=== PATIENT | female | born 1940 | race African-American/Black ===

== ENCOUNTER 2016-11-26 22:31 | Emergency (ER) | payer BC, OTHER ==
[~2016-11-26] VITALS: Ht 170.2 cm; Wt 76.2 kg
--- NOTE | ~2016-11-26 | EKG ---
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
[~2016-11-26 22:31] MED LIST: ADULT LOW DOSE81 MG PO; ALDACTONE25 MG PO; AMBIEN 5 MG TABL5 M1 PO; ASPIRIN EC81 M1 PO; BENADRYL ALLERG25 MG PO; CLONIDINE0.1 PO; COUMADIN; COUMADIN 2 MG TA2 M1 PO; CRESTOR20 MG PO; CRESTOR40 MG PO; ENDUR-ACIN250 MG PO; ENDUR-ACIN500 MG PO; EVISTA PO; FERRO-TIME325 MG PO; FOLIC ACID 40400 MC1 PO; HYDROCHLOROTHIA25 M1 PO; HYDROCODON-ACE1 EAC5 PO; HYDROCODONE-AP1 EACH PO; IRON325 M1 PO; IRON325 PO; KLOR-CON 1010 MEQ PO; LEVOTHROID200 MCG PO; LEVOTHYROXIN0.075 MG PO; LEVOTHYROXINE 0.1 MG PO; LISINOPRIL10 MG PO; LISINOPRIL20 MG PO; LOVAZA1000 MG PO; MELOXICAM7.5 MG PO; MIRALAX17 GM PO; NASONEX17 GM NS; NEURONTIN 300300 M1 PO; NORCO 10-325 T1 EACH PO; PLAVIX 75 MG TA75 M1 PO; PLAVIX 75 MG TA75 MG PO; RANITIDINE 150150 M1 PO; SINGULAIR 10 MG10 M1 PO; VITAMIN D3 PO; VITAMIN D32000 UNIT PO; VITAMIN D35000 UNIT PO; XARELTO10 MG PO; ZETIA10 MG PO; ZYRTEC10 M2 PO
[2016-11-26] MEDS ORDERED: ARICEPT 5 MG TAB5 MG PO (22:57)
[2016-11-26] MEDS ORDERED: MICROZIDE12.5 MG PO (22:57)
[2016-11-26] MEDS ORDERED: ATIVAN0.5 MG PO (22:58)
[2016-11-26] MEDS ORDERED: LIPITOR 20 MG T20 M1 PO (23:00)
[2016-11-26 23:01] LABS: URINE BILIRUBIN NEGATIVE (Negative); URINE BLOOD NEGATIVE (Negative); URINE COLOR YELLOW; URINE GLUCOSE-RANDOM* NEGATIVE (Negative); URINE KETONES NEGATIVE (Negative); URINE NITRITE NEGATIVE (Negative); URINE PROTEIN (DIPSTICK) NEGATIVE (Negative)
[2016-11-26] MEDS ORDERED: ACETAMINOPHEN-1 EAC1 PO (23:01)
[2016-11-26 23:05] LABS: ABSOLUTE NEUTROPHILS 3.6 thou/uL (1.4-8.2); BASOPHILS 0.4 % (0.0-2.0); EOSINOPHILS 2.6 % (0.0-3.0); HEMATOCRIT 31.3 % (37.0-47.0); HEMOGLOBIN 11.2 gm/dL (12.0-15.0); LYMPHOCYTES 33.1 % (24.0-44.0); MCH 30.6 pg (26.0-34.0); MONOCYTES 5.9 % (1.0-8.0); PLATELET COUNT 167 thou/uL (150-400); RBC 3.68 mil/uL (4.20-5.00); RDW 13.8 % (10.5-14.5); WBC 6.2 thou/uL (4.0-11.0)
[2016-11-26 23:15] LABS: ANION GAP 12 mmol/L (7-16); BUN 41 mg/dL (7-18); CALCIUM 8.9 mg/dL (8.5-10.1); CHLORIDE 108 mmol/L (98-107); CO2 19 mmol/L (21-32); CREATININE 2.1 mg/dL (0.6-1.3); GLUCOSE 112 mg/dL (70-99); POTASSIUM 4.8 mmol/L (3.5-5.1); SODIUM 139 mmol/L (136-145)
[2016-11-26 23:16] LABS: MANUAL DIFF NO
[2016-11-26 23:19] LABS: CASTS None Seen /LPF (None Seen); SQUAMOUS 0-3 Few /LPF (0-3)
[2016-11-26 23:20] LABS: BACTERIA 1-9 Few /HPF (None Seen); CRYSTALS None Seen /LPF (None Seen); TRANSITIONAL EPITHEL CELL 0-3 Few /LPF (None Seen); URINE RBC None Seen /HPF (0-2); URINE WBC 6-15 Few /HPF (0-5)
[2016-11-26 23:27] LABS: ALBUMIN 3.9 g/dL (3.4-5.0); ALKALINE PHOSPHATASE 77 U/L (46-116); MAGNESIUM 2.1 mg/dL (1.8-2.4); NT-PRO BRAIN NAT PEPTIDE 64 pg/mL (<300); SGOT 17 U/L (15-37); SGPT 20 U/L (30-65); TOTAL BILIRUBIN 0.8 mg/dL (<0.1-1.0); TOTAL PROTEIN 6.8 g/dL (6.4-8.2); TROPONIN-I < 0.04 ng/mL (<0.04-0.07)
[2016-11-27] MEDS ORDERED: KEFLEX500 MG PO (00:21)
== END 2016-11-27 00:47 | disposition home or self-care (01) ==
LOC: ER 22:31
PROVIDERS: Emergency Medicine
DX: I12.9 Hypertensive chronic kidney disease with stage 1 through stage 4 chronic kidney disease, or unspecified chronic kidney disease (principal); L51.1 Stevens-Johnson syndrome; E78.00 Pure hypercholesterolemia, unspecified; E03.9 Hypothyroidism, unspecified; Z85.528 Personal history of other malignant neoplasm of kidney; G30.9 Alzheimer's disease, unspecified; N39.0 Urinary tract infection, site not specified; F02.80 Dementia in other diseases classified elsewhere, unspecified severity, without behavioral disturbance, psychotic disturbance, mood disturbance, and anxiety; Z88.2 Allergy status to sulfonamides; Z87.891 Personal history of nicotine dependence

== ENCOUNTER → 2016-12-21 | Outpatient (CLI) | payer BC, OTHER ==
[~2016-12-21] MED LIST changes: +ACETAMINOPHEN-1 EAC1 PO; +ARICEPT 5 MG TAB5 MG PO; +ATIVAN0.5 MG PO; +KEFLEX500 MG PO; +LIPITOR 20 MG T20 M1 PO; +MICROZIDE12.5 MG PO
== END ==
LOC: MRI 06:48
DX: M79.671 Pain in right foot (principal)

== ENCOUNTER 2017-06-13 06:37 | Emergency (ER) | payer BC, OTHER ==
[~2017-06-13] VITALS: Ht 167.6 cm; Wt 70.8 kg
[2017-06-13 07:48] LABS: POTASSIUM 3.1 mmol/L (3.5-5.1)
[2017-06-13] MEDS ORDERED: PREDNISONE 20 M20 MG PO (09:19)
[2017-06-13] MEDS ORDERED: PEPCID20 MG PO (09:19)
[2017-06-13] MEDS ORDERED: EPIPEN JR0.15 MG/02 SUBQ (09:19)
== END 2017-06-13 09:45 | disposition home or self-care (01) ==
LOC: ER 06:37
PROVIDERS: Emergency Medicine
DX: T78.3XXA Angioneurotic edema, initial encounter (principal); E87.6 Hypokalemia; I12.9 Hypertensive chronic kidney disease with stage 1 through stage 4 chronic kidney disease, or unspecified chronic kidney disease; N18.9 Chronic kidney disease, unspecified; M19.90 Unspecified osteoarthritis, unspecified site; L51.1 Stevens-Johnson syndrome; E78.00 Pure hypercholesterolemia, unspecified; E03.9 Hypothyroidism, unspecified; F10.99 Alcohol use, unspecified with unspecified alcohol-induced disorder; Z96.652 Presence of left artificial knee joint; Z96.642 Presence of left artificial hip joint; Z88.2 Allergy status to sulfonamides; Z87.891 Personal history of nicotine dependence

== ENCOUNTER 2017-09-26 11:27 | Emergency (ER) | payer BC, OTHER ==
[~2017-09-26] VITALS: Ht 170.2 cm; Wt 68.0 kg
[~2017-09-26 11:27] MED LIST changes: +EPIPEN JR0.15 MG/02 SUBQ; +PEPCID20 MG PO; +PREDNISONE 20 M20 MG PO
[2017-09-26 13:13] VITALS: BP 101/62
[2017-09-26] MEDS ORDERED: OXYCODONE HCL 55 MG PO (13:15)
== END 2017-09-26 13:26 | disposition home or self-care (01) ==
LOC: ER 11:27
DX: M25.552 Pain in left hip (principal); I10 Essential (primary) hypertension; M19.90 Unspecified osteoarthritis, unspecified site; E78.00 Pure hypercholesterolemia, unspecified; E03.9 Hypothyroidism, unspecified; Z88.2 Allergy status to sulfonamides; Z87.891 Personal history of nicotine dependence; W18.39XA Other fall on same level, initial encounter; Y93.89 Activity, other specified; Y92.89 Other specified places as the place of occurrence of the external cause; Y99.8 Other external cause status

== ENCOUNTER 2017-10-03 12:42 | Emergency (ER) | payer BC, OTHER ==
[~2017-10-03] VITALS: Ht 170.2 cm; Wt 77.1 kg
--- NOTE | ~2017-10-03 | EKG ---
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
[~2017-10-03 12:42] MED LIST changes: +OXYCODONE HCL 55 MG PO
[2017-10-03 13:26] LABS: ABSOLUTE NEUTROPHILS 4.6 thou/uL (1.4-8.2); BASOPHILS 0.4 % (0.0-2.0); EOSINOPHILS 3.9 % (0.0-3.0); HEMATOCRIT 32.5 % (37.0-47.0); HEMOGLOBIN 11.4 gm/dL (12.0-15.0); LYMPHOCYTES 19.4 % (24.0-44.0); MCH 32.5 pg (26.0-34.0); MCHC 35.2 g/dL (28.0-37.0); MCV 92.4 fL (80.0-100.0); MONOCYTES 5.1 % (1.0-8.0); PLATELET COUNT 134 thou/uL (150-400); POLYS 71.2 % (36.0-66.0); RBC 3.51 mil/uL (4.20-5.00); RDW 13.8 % (10.5-14.5); WBC 6.5 thou/uL (4.0-11.0)
[2017-10-03 13:36] LABS: ANION GAP 11 mmol/L (7-16); BUN 35 mg/dL (7-18); CALCIUM 9.4 mg/dL (8.5-10.1); CHLORIDE 107 mmol/L (98-107); CO2 24 mmol/L (21-32); CREATININE 2.1 mg/dL (0.6-1.0); GLUCOSE 100 mg/dL (74-106); POTASSIUM 4.2 mmol/L (3.5-5.1); SODIUM 142 mmol/L (136-145)
[2017-10-03 13:45] LABS: TROPONIN-I < 0.04 ng/mL (<0.06)
[2017-10-03 14:33] VITALS: BP 101/41
== END 2017-10-03 14:49 | disposition home or self-care (01) ==
LOC: ER 12:42
PROVIDERS: Emergency Medicine
DX: I95.1 Orthostatic hypotension (principal); R07.9 Chest pain, unspecified; I10 Essential (primary) hypertension; M19.90 Unspecified osteoarthritis, unspecified site; E78.00 Pure hypercholesterolemia, unspecified; E03.9 Hypothyroidism, unspecified; Z88.2 Allergy status to sulfonamides; Z87.891 Personal history of nicotine dependence

== ENCOUNTER 2017-10-10 17:17 | Inpatient (IN) | payer BC, OTHER ==
[~2017-10-10] VITALS: Ht 165.1 cm; Wt 80.7 kg
--- NOTE | ~2017-10-10 | 2DMMODE ---
[facility] [place] [address] 2 D/M-MODE ECHOCARDIOGRAM Name: ROSE MARIE MERCER Room #: 355-P ADM IN M.R.#: [id number] Admission: 10/10/17 Attend Phys: Gregorio Moore Discharge: Date of : 38 Date of Service: 10/11/17 [facility] Report #: [id number] THIS REPORT FOR: //name// APPROVED REPORT Study performed: 10/11/2017 08:58:19 EXAM: Comprehensive 2D, Doppler, and color-flow Echocardiogram Patient Location: Bedside Room #: [facility] Status: routine BSA: 1.88 HR: 82 bpm BP: 100/60 mmHg Other Information Study Quality: Adequate Indications Syncope Hypertension/HDD 2D Dimensions RVDd: 33.36 mm LVEF(%): 59.89 (>50%) IVSd: 10.05 (7-11mm) LVOT Diam: 20.50 (18-24mm) LVDd: 55.11 mm PWd: 10.15 (7-11mm) Ascending Ao: 30.05 (22-36mm) LVDs: 37.34 (25-40mm) Aortic Root: 26.80 mm IVC: 22.00 mm Coto's LVEF: 59.89 % Volumes Left Atrial Volume (Systole) Single Plane 4CH: 55.14 mL Single Plane 2CH: 49.13 mL LA ESV Index: 33.00 mL/m2 Aortic Valve AoV Peak Enrique.: 1.33 m/s AO Peak Gr.: 7.08 mmHg LVOT Max P.98 mmHg LVOT Max V: 1.00 m/s SYLVIA Vmax: 2.47 cm2 Mitral Valve E/A Ratio: 1.0 MV Decel. Time: 153.72 ms [facility] [address] [place] [address] [place] [address] 2 D/M-MODE ECHOCARDIOGRAM Name: ROSE MARIE MERCER Room #: 355-P [facility] IN M.R.#: [id number] Admission: 10/10/17 Attend Phys: Gregorio Moore Discharge: Date of : 38 Date of Service: 10/11/17 [facility] Report #: [id number] MV E Max Enrique.: 0.69 m/s MV A Enrique.: 0.70 m/s MV PHT: 44.58 ms IVRT: 133.79 ms Pulmonary Valve PV Peak Enrique.: 0.99 m/s PV Peak Gr.: 3.95 mmHg KS End Vmax: 0.86 m/s Tricuspid Valve TR Peak Enrique.: 3.00 m/s TR Peak Gr.: 36.04 mmHg PA Pressure: 46.00 mmHg Left Ventricle The left ventricle is normal size. There is normal left ventricular wall thickness. The left ventricular systolic function is normal. The left ventricular ejection fraction is within the normal range. LVEF is 55-60%. This study is not technically sufficient to allow evaluation of the LV diastolic function. Right Ventricle The right ventricle is normal size. The right ventricular systolic function is normal. Atria The left atrium size is normal. The right atrium size is normal. Aortic Valve The aortic valve is normal in structure. No aortic regurgitation is present. There is no aortic valvular stenosis. Mitral Valve The mitral valve is normal in structure. Trace mitral regurgitation. No evidence of mitral valve stenosis. Tricuspid Valve The tricuspid valve is normal in structure. There is mild tricuspid regurgitation. The right atrial pressure is estimated at 46 mmHg. There is moderate pulmonary hypertension. Pulmonic Valve The pulmonary valve is normal in structure. Trace to mild [place] [address] 2 D/M-MODE ECHOCARDIOGRAM Name: SYLVIEROSE MARIE Room #: 355-P [facility] IN .R.#: [id number] Admission: 10/10/17 Attend Phys: Gregorio Moore Discharge: Date of : 38 Date of Service: 10/11/17 1024 Report #: [id number] Great Vessels The aortic root is normal in size. IVC is dilated and collapses <50% with inspiration. Pericardium Trace anterior pericardial effusion. <Conclusion> The left ventricle is normal size. LVEF is 55-60%. The aortic valve is normal in structure. The mitral valve is normal in structure. Trace mitral regurgitation. The tricuspid valve is normal in structure. There is mild tricuspid regurgitation. The right atrial pressure is estimated at 46 mmHg. There is moderate pulmonary hypertension. The pulmonary valve is normal in structure. Trace to mild pulmonic regurgitation. Trace anterior pericardial effusion. <ELECTRONICALLY SIGNED> By: Tony Martinez MD 10/11/17 1024 1024 1024 Tony Martinez MD /INF
--- NOTE | ~2017-10-10 | EKG ---
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 : 1940 Requested By: Marie Baig Order Number: [id number] MD: Santhosh Best Measurements Intervals [place] Rate: 65 P: VT: QRS: 2 QRSD: 103 T: 24 QT: 438 QTc: 456 Interpretive Statements Sinus rhythm No significant abnormality Compared to ECG 10/03/2017 13:43:42 Atrial premature complexes are no longer present Electronically Signed On 10-11-2017 8:50:11 SAT ACT INSTRUCTOR by Santhosh Best [email or web address] <ELECTRONICALLY SIGNED> By: Santhosh Best MD, [facility] 10/11/17 0850 31 31 Santhosh Best MD, [facility] /EPI
[2017-10-10 17:20] VITALS: BP 113/65
[2017-10-10] MEDS ORDERED: LIPITOR40 MG PO (17:32)
[2017-10-10] MEDS ORDERED: ARICEPT 5 MG TAB5 MG PO (17:33)
[2017-10-10] MEDS ORDERED: SYNTHROID150 MCG PO (17:34)
[2017-10-10] MEDS ORDERED: GABAPENTIN 100100 MG PO (17:35)
[2017-10-10] MEDS ORDERED: ZANAFLEX2 MG PO (17:36)
[2017-10-10] MEDS ORDERED: REMERON15 MG PO (17:36)
[2017-10-10 17:37] LABS: ABSOLUTE NEUTROPHILS 2.4 thou/uL (1.4-8.2); BASOPHILS 0.5 % (0.0-2.0); EOSINOPHILS 5.8 % (0.0-3.0); HEMATOCRIT 28.4 % (37.0-47.0); HEMOGLOBIN 10.1 gm/dL (12.0-15.0); LYMPHOCYTES 46.6 % (24.0-44.0); MCH 32.6 pg (26.0-34.0); MCHC 35.5 g/dL (28.0-37.0); MCV 91.7 fL (80.0-100.0); MONOCYTES 5.1 % (1.0-8.0); PLATELET COUNT 142 thou/uL (150-400); RDW 13.3 % (10.5-14.5); WBC 5.8 thou/uL (4.0-11.0)
[2017-10-10 17:45] LABS: ANION GAP 12 mmol/L (7-16); BUN 39 mg/dL (7-18); CALCIUM 8.8 mg/dL (8.5-10.1); CHLORIDE 108 mmol/L (98-107); CO2 22 mmol/L (21-32); CREATININE 2.4 mg/dL (0.6-1.0); GLUCOSE 135 mg/dL (74-106); POTASSIUM 3.4 mmol/L (3.5-5.1); SODIUM 142 mmol/L (136-145)
[2017-10-10 17:50] VITALS: BP 113/65
[2017-10-10 17:53] LABS: TROPONIN-I < 0.04 ng/mL (<0.06)
[2017-10-10 18:45] VITALS: BP 105/60
[2017-10-10 19:15] VITALS: BP 105/59
[2017-10-10 23:45] VITALS: BP 111/65
[2017-10-11 04:27] VITALS: BP 92/61
[2017-10-11 04:29] LABS: CALCIUM 8.2 mg/dL (8.5-10.1); POTASSIUM 4.3 mmol/L (3.5-5.1)
[2017-10-11 07:34] VITALS: BP 100/60
[2017-10-11 15:32] VITALS: BP 108/66
[2017-10-11 19:22] LABS: URINE BILIRUBIN NEGATIVE (Negative); URINE BLOOD NEGATIVE (Negative); URINE CLARITY CLEAR; URINE COLOR YELLOW; URINE GLUCOSE-RANDOM* NEGATIVE (Negative); URINE KETONES NEGATIVE (Negative); URINE LEUKOCYTES TRACE (Negative); URINE NITRITE NEGATIVE (Negative); URINE PROTEIN (DIPSTICK) NEGATIVE (Negative); URINE SPECIFIC GRAVITY 1.015 (1.005-1.035); URINE UROBILINOGEN 0.2 E.U./dl (0.2-1.0)
[2017-10-11 19:45] VITALS: BP 127/89
[2017-10-12 04:06] VITALS: BP 120/70
[2017-10-12 05:44] LABS: ALBUMIN 3.2 g/dL (3.4-5.0); CALCIUM 8.5 mg/dL (8.5-10.1); CREATININE 1.6 mg/dL (0.6-1.0); PHOSPHORUS 3.1 mg/dL (2.5-4.9); POTASSIUM 4.7 mmol/L (3.5-5.1)
[2017-10-12 08:32] VITALS: BP 143/82
[2017-10-12] MEDS ORDERED: SYNTHROID150 MCG PO (09:22)
[2017-10-12 10:52] VITALS: BP 143/82
== END 2017-10-12 11:31 | disposition home or self-care (01) | DRG 312 ==
LOC: ER 17:17 → 3W 17:39 → EROBS 17:39 → 3W 18:50
PROVIDERS: Emergency Medicine; Hospitalist; Nurse Practitioner; Nurse Practitioner Gerontology
PROC: B24BZZ4 Ultrasonography of Heart with Aorta, Transesophageal (ICD-10-PCS; principal; 2017-10-11)
DX: R55 Syncope and collapse (principal); N17.9 Acute kidney failure, unspecified; G30.9 Alzheimer's disease, unspecified; F02.80 Dementia in other diseases classified elsewhere, unspecified severity, without behavioral disturbance, psychotic disturbance, mood disturbance, and anxiety; M19.90 Unspecified osteoarthritis, unspecified site; I73.9 Peripheral vascular disease, unspecified; I12.9 Hypertensive chronic kidney disease with stage 1 through stage 4 chronic kidney disease, or unspecified chronic kidney disease; E78.00 Pure hypercholesterolemia, unspecified; D69.6 Thrombocytopenia, unspecified; E86.0 Dehydration; D64.9 Anemia, unspecified; N18.3 Chronic kidney disease, stage 3 (moderate); I95.9 Hypotension, unspecified; E87.6 Hypokalemia; E03.9 Hypothyroidism, unspecified; Z96.652 Presence of left artificial knee joint; Z96.642 Presence of left artificial hip joint; Z98.42 Cataract extraction status, left eye; Z98.41 Cataract extraction status, right eye; Z87.891 Personal history of nicotine dependence; Z79.82 Long term (current) use of aspirin; Z79.899 Other long term (current) drug therapy; Z85.528 Personal history of other malignant neoplasm of kidney; Z88.2 Allergy status to sulfonamides; Z28.21 Immunization not carried out because of patient refusal
CPT/HCPCS: 10879

== ENCOUNTER 2018-09-18 12:32 | Emergency (ER) | payer BC, OTHER ==
[~2018-09-18] VITALS: Ht 170.2 cm; Wt 71.7 kg
[2018-09-18 12:32] VITALS: BP 176/92
[~2018-09-18 12:32] MED LIST changes: +GABAPENTIN 100100 MG PO; +LIPITOR40 MG PO; +REMERON15 MG PO; +SYNTHROID150 MCG PO; +ZANAFLEX2 MG PO
[2018-09-18] MEDS ORDERED: AUGMENTIN 875-1 EACH PO (13:04)
[2018-09-24] MEDS ORDERED: NORCO 7.5-3251 EACH PO (10:45)
[2018-09-24] MEDS ORDERED: NAMZARIC 28 MG1 EACH PO (10:46)
[2018-09-24] MEDS ORDERED: CYMBALTA60 MG PO (10:46)
[2018-09-24] MEDS ORDERED: CARVEDILOL12.5 MG PO (10:46)
[2018-09-24] MEDS ORDERED: CLONIDINE HCL0.1 MG PO (10:46)
[2018-09-24] MEDS ORDERED: SPIRONOLACTONE25 M1 PO (10:47)
[2018-09-24] MEDS ORDERED: AUGMENTIN 875-1 EACH PO (11:58)
[2018-09-24] MEDS ORDERED: SYNTHROID150 MCG PO (11:59)
[2018-09-24] MEDS ORDERED: EPIPEN JR0.15 MG/02 INJECTION (12:00)
== END 2018-09-18 13:24 | disposition home or self-care (01) ==
LOC: ER 12:32
DX: S51.832A Puncture wound without foreign body of left forearm, initial encounter (principal); I10 Essential (primary) hypertension; M19.90 Unspecified osteoarthritis, unspecified site; E78.00 Pure hypercholesterolemia, unspecified; E03.9 Hypothyroidism, unspecified; Z96.652 Presence of left artificial knee joint; Z98.890 Other specified postprocedural states; Z87.891 Personal history of nicotine dependence; Z88.2 Allergy status to sulfonamides; W54.0XXA Bitten by dog, initial encounter; Y92.89 Other specified places as the place of occurrence of the external cause; Y93.89 Activity, other specified; Y99.8 Other external cause status

== ENCOUNTER → 2018-09-24 | Outpatient (CLI) | payer BC, OTHER ==
[~2018-09-24] VITALS: Ht 167.6 cm; Wt 87.1 kg
[~2018-09-24] MED LIST changes: +AUGMENTIN 875-1 EACH PO; +CARVEDILOL12.5 MG PO; +CLONIDINE HCL0.1 MG PO; +CYMBALTA60 MG PO; +EPIPEN JR0.15 MG/02 INJECTION; +NAMZARIC 28 MG1 EACH PO; +NORCO 7.5-3251 EACH PO; +SPIRONOLACTONE25 M1 PO
[2018-09-24 11:07] VITALS: BP 131/63
--- NOTE | 2018-09-24 11:11 | NUR ---
Pain Clinic Assessment: 1. History of Osteoarthritis: Right Lower Extremity Left Lower Extremity History of Rheumatoid Arthritis: Not Applicable 2. Height: 5 ft. 6 in. 167.6 cm. Weight: 192.0 lb. oz. 87.091 kg. Patient's BMI: 31.0 3. Vital Signs: BP: 131/63 Pulse: 62 Resp: 18 Temp: 02 Sat: 96 ECG Mon: 4. Pain Intensity: 8 5. Fall Risk: Dizziness: Needs help standing or walking: Fallen in the last 3 months: Fall risk comments: 6. Patient on Blood Thinner: None 7. History of Hypertension: Y 8. Opioid Therapy greater than 6 weeks: Y Opiate Contract Signed: 9. Risk Assessment Tool Provided: low-1 10. Functional Assessment Tool: 11. Recreational Drug Use: Never Drug Type: Tobacco Use: Former Smoker Tobacco Type: Amount or Packs/day: How Many Years: Alcohol Use: No Frequency: Quant:
== END ==
LOC: PAIN 07:01
DX: M17.0 Bilateral primary osteoarthritis of knee (principal); R20.0 Anesthesia of skin; F03.90 Unspecified dementia, unspecified severity, without behavioral disturbance, psychotic disturbance, mood disturbance, and anxiety; Z79.899 Other long term (current) drug therapy

== ENCOUNTER → 2018-10-10 | Outpatient (CLI) | payer BC, OTHER ==
[~2018-10-10] VITALS: Ht 167.6 cm; Wt 86.3 kg
[~2018-10-10] MED LIST changes: +MEDROLDOSEPACK PO
[2018-10-10 11:01] VITALS: BP 148/62
--- NOTE | 2018-10-10 11:11 | NUR ---
Pain Clinic Assessment: 1. History of Osteoarthritis: Right Lower Extremity Left Lower Extremity History of Rheumatoid Arthritis: Not Applicable 2. Height: 5 ft. 6 in. 167.6 cm. Weight: 190.2 lb. oz. 86.274 kg. Patient's BMI: 30.7 3. Vital Signs: BP: 148/62 Pulse: 62 Resp: 20 Temp: 02 Sat: 97 ECG Mon: 4. Pain Intensity: 8 5. Fall Risk: Dizziness: Y Needs help standing or walking: Y Fallen in the last 3 months: N Fall risk comments: 6. Patient on Blood Thinner: None 7. History of Hypertension: Y 8. Opioid Therapy greater than 6 weeks: Y Opiate Contract Signed: 9. Risk Assessment Tool Provided: low-1 10. Functional Assessment Tool: 11. Recreational Drug Use: Never Drug Type: Tobacco Use: Former Smoker Tobacco Type: Amount or Packs/day: How Many Years: Alcohol Use: No Frequency: Quant:
== END ==
LOC: PAIN 07:13
DX: M54.5 Low back pain (principal); Z79.899 Other long term (current) drug therapy

== ENCOUNTER → 2018-11-19 | Outpatient (CLI) | payer BC, OTHER ==
[~2018-11-19] VITALS: Ht 167.6 cm; Wt 83.0 kg
[2018-11-19 10:34] VITALS: BP 120/70
--- NOTE | 2018-11-19 10:54 | NUR ---
Pain Clinic Assessment: 1. History of Osteoarthritis: Right Lower Extremity Left Lower Extremity History of Rheumatoid Arthritis: Not Applicable 2. Height: 5 ft. 6 in. 167.6 cm. Weight: 183.0 lb. oz. 83.008 kg. Patient's BMI: 29.6 3. Vital Signs: BP: 120/70 Pulse: 70 Resp: 16 Temp: 02 Sat: 96 ECG Mon: 4. Pain Intensity: 5 5. Fall Risk: Dizziness: N Needs help standing or walking: Y Fallen in the last 3 months: N Fall risk comments: 6. Patient on Blood Thinner: None 7. History of Hypertension: Y 8. Opioid Therapy greater than 6 weeks: Y Opiate Contract Signed: 9. Risk Assessment Tool Provided: low-1 10. Functional Assessment Tool: 11. Recreational Drug Use: Never Drug Type: Tobacco Use: Former Smoker Tobacco Type: Amount or Packs/day: How Many Years: Alcohol Use: No Frequency: Quant:
--- NOTE | 2018-11-26 08:28 | HPC ---
[facility] [address] [place] [address] PAIN MANAGEMENT CONSULTATION Name: GIFTYMARIOLAROSE MARIE Room #: REG GUILLERMO Phil#: [id number] Admission: 11/19/18 ������������������ Attend Phys: Alice Gustafson MD Discharge: ������������������ Date of : 38 Report #: [id number] THIS REPORT FOR: //name// CC: Jeovany Gustafson DATE OF SERVICE: 11/19/2018 CHIEF COMPLAINT: History of spinal stenosis and back pain. FOLLOWUP HISTORY: The patient is a 78-year-old female who has been followed in the Pain Clinic. As you recall, she has a history of spinal stenosis. She has undergone back surgeries in the past. Her son states that she has had injections in the low back area in the past. At this juncture, they seem to be less effective. She has been treated with opioid medications and other medications to help control her pain. She has had total knee replacement, left hip replacement, right partial nephrectomy. She continues to have pain and discomfort. She stays in the bed quite a bit. She states that a component of this is the pain she is experiencing. She has some decrease in memory. She asked that her son report how she did with hydrocodone and Medrol Dosepak. Her son feels that the Medrol Dosepak may have provided some benefit but not a significant amount. She continues to be less active and lying and staying in bed. ALLERGIES: MANUEL INHIBITORS, SULFA; MCCALL-LAZARUS SYNDROME IN 2015, SHORTNESS OF BREATH AND PRURITUS. MEDICATIONS: Levothyroxine 200 mcg daily, EpiPen p.r.n., hydrochlorothiazide 1 tablet, lorazepam 0.5 mg t.i.d. p.r.n., Lipitor 40 mg, Neurontin 100 mg t.i.d., Remeron 15 mg at bedtime, Zanaflex 2 mg p.r.n. for muscle spasms, aspirin 3 tablets p.o., Zetia 10 mg, vitamin D3 of 5000 units, Namzaric 28 mg/10 mg capsules. PAIN CLINIC ASSESSMENT/PQRS: 1. History of osteoarthritic changes in the lower extremities. The patient is not being treated for rheumatoid arthritis. 2. Height 5 feet 6 inches, weight 183 pounds, BMI is 29.6. 3. Vital signs: Blood pressure 120/70, pulse 70, respiratory rate 16, room air saturation 96%. 4. Pain intensity: 5/10. 5. Fall risk: The patient has not fallen in the last 3 months. 6. Blood thinner: The patient is not on a blood thinning medication. 7. Hypertension: The patient is being treated for hypertension. 8. Opioids greater than 6 weeks: The patient receives her medications from one source, the Pain Clinic. 9. Risk assessment tool: Low, 1 for opioid use. [address] [address] PAIN MANAGEMENT CONSULTATION Name: ROSE MARIE MERCER Room #: [facility].#: [id number] Admission: 11/19/18 ������������������ Attend Phys: Alice Gustafson MD Discharge: ������������������ Date of : 38 Report #: [id number] 10. Functional assessment tool: . 11. Recreational drug use: The patient denies use of recreational drugs. 12. Tobacco: The patient is a former smoker. 13. Alcohol: The patient denies use of alcoholic beverages. PHYSICAL EXAMINATION: GENERAL: The patient is a well-developed, well-nourished black female. She appears her stated age. She is alert and oriented x 3. Affect is appropriate. The patient does cry during the interview when she is talking to the nurse. Nurse spoke to her whether or not she was getting in and out of bed because of depression, and this brought her to tears. HEENT: Normocephalic, atraumatic. Extraocular eye muscles intact. Sclerae nonicteric. Mucous membranes are moist. The patient's son is present. He corroborates her story. NECK: Without adenopathy or JVD. HEART: Regular rate. LUNGS: Clear to auscultation, without rhonchi or rales. EXTREMITIES: Upper extremity muscle strength is judged to be 5-/5 for the major muscle groups in the upper extremity. MUSCULOSKELETAL: Low back: The patient without significant scoliosis, kyphosis, or lordosis. She does complain of pain in the right flank area at about T12 area. She also has some pain in the area of her buttocks at times, which is radiating down into her right leg with numbness into her foot. She notes the pain is worse with movement, bending and lifting, somewhat improves with lying down. IMPRESSION: 1. Development of Alzheimer's disease. 2. History of renal cell carcinoma. 3. Hypertension. 4. Arthritis. 5. Peripheral vascular disease with femoral stents, right lower extremity. 6. Hypercholesterolemia. 7. Hypothyroidism. RECOMMENDATIONS: We discussed treatment options with the patient and with her son. At this juncture, I think it would be reasonable for her to continue with her medications. She was taking ____ 7.5 mg. We have increased this to 10 mg one p.o. t.i.d. Hopefully, this will increase her ability to engage in activities with less pain. She will also go to physical therapy. I think that this would be helpful. Her son feels that physical therapy would be beneficial. We have provided a script for them to go to physical therapy. We have recommended that they use the phone to video the exercise regimen that her physical therapist would like for her to undergo. That way, they could put it on a computer or the television or even on her phone and she can go through and do her activities. Hopefully, this would provide guidelines for her and [facility] [address] [place] [address] PAIN MANAGEMENT CONSULTATION Name: ROSE MARIE MERCER Edi Room #: REG [facility] JulesNuraToby.#: [id number] Admission: 11/19/18 ������������������ Attend Phys: Alice Gustafson MD Discharge: ������������������ Date of : 38 Report #: [id number] other family members too if they are helping her with her physical therapy. We would like to thank you for letting us participate in her care. We hope she continues to improve. ��������������������������������������������� <ELECTRONICALLY SIGNED> ���������������������������������������� By: Alice Gustafson MD ��������������������������������������������� 11/26/18 0828 [id number] 0305 Alice Gustafson MD /nt
== END ==
LOC: PAIN 07:08
DX: M48.061 Spinal stenosis, lumbar region without neurogenic claudication (principal); M19.90 Unspecified osteoarthritis, unspecified site; I10 Essential (primary) hypertension; E03.9 Hypothyroidism, unspecified; E78.00 Pure hypercholesterolemia, unspecified; I73.9 Peripheral vascular disease, unspecified; Z85.528 Personal history of other malignant neoplasm of kidney

== ENCOUNTER → 2019-01-16 | Outpatient (CLI) | payer BC, OTHER ==
[~2019-01-16] VITALS: Ht 167.6 cm; Wt 84.0 kg
--- NOTE | ~2019-01-16 | HPC ---
[facility] [place] [address] PAIN MANAGEMENT CONSULTATION Name: SYLVIEROSE MARIE A Room #: REG GUILLERMO Villarreal#: [id number] Admission: 01/16/19 ������������������ Attend Phys: Alice Gustafson MD Discharge: ������������������ Date of : 38 Report #: [id number] THIS REPORT FOR: //name// CC: Jeovany Gustafson DATE OF SERVICE: 01/16/2019 CHIEF COMPLAINT: Things are going pretty well. HISTORY: The patient is a 78-year-old female. As you recall, she has chronic pain because of spinal stenosis. She is walking with a cane. She has undergone back surgeries in the past. Pain at this juncture is helped with use of her opioid medications. She rates her pain as a 5/10. Her son and she feels that she has ____ up and doing more. She is not staying in bed as much. She has considered going to physical therapy. They have not been able to make it to physical therapy yet, but would like to in the near future. She has had no complication from her medications. 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 She is beginning to have problems with her memory. She did find that the Medrol Dosepak was helpful. She has returned today for medications. ALLERGIES: MANUEL INHIBITORS, SULFA, HAD MCCALL-LAZARUS SYNDROME IN 2014, SHORTNESS OF BREATH AND PRURITUS. MEDICATIONS: Levothyroxine 200 mcg daily, EpiPen p.r.n., hydrochlorothiazide one tablet, lorazepam 0.5 mg 1 p.o. t.i.d., Lipitor 40 mg, Neurontin 100 mg t.i.d., Remeron 15 mg at bedtime, Zanaflex 2 mg p.r.n. muscle spasms, aspirin p.r.n., Zetia 10 mg, vitamin D3 5000 units, and Namzaric 28/10 capsules. PAIN CLINIC ASSESSMENT AND PQRS: 1. Osteoarthritis. The patient has changes in the lower extremity. The patient is not being treated for rheumatoid arthritis. 2. Height 5 feet 6 inches, weight 182 pounds, BMI is 29.6. 3. Vital signs: Blood pressure 120/70, pulse 70, respiratory rate 16, room air saturation is 96%. 4. Pain intensity 01/09. 5. Fall history. The patient has not fallen in the last 3 months. She is walking with a cane. 6. Blood thinner. The patient is not on a blood thinning medication. 7. Hypertension. The patient has been treated for hypertension. 8. Opioid therapy greater than 6 weeks. 9. Risk assessment tool, low for opioid use. 10. Functional assessment tool . 11. Recreational drug use. The patient denies use of recreational drugs. 12. Tobacco: The patient is a former smoker. 13. Alcohol: The patient denies use of alcoholic beverages. [address] [address] PAIN MANAGEMENT CONSULTATION Name: FAITH MERCEREdi Daley Room #: [facility] [id number] Admission: 01/16/19 ������������������ Attend Phys: Alice Gustafson MD Discharge: ������������������ Date of : 38 Report #: [id number] PHYSICAL EXAMINATION: GENERAL: The patient is a well-developed, well-nourished black female, appears her stated age. She is accompanied by her son. She is alert and oriented x 3. HEENT: Normocephalic, atraumatic. Extraocular eye muscles intact. Sclerae nonicteric. Mucous membranes are moist. The patient is wearing her glasses. Her son corroborates her story as we discussed her situation. NECK: Without adenopathy or JVD. HEART: Regular rate. LUNGS: Clear to auscultation without rhonchi or rales. EXTREMITIES: Upper extremity muscle strength is judged to be 5-/5 for the major muscle groups in the upper extremity. The patient without significant scoliosis, kyphosis, or lordosis. The patient does have some pain and discomfort in the lower portion of her back in the T12 area. Has pain down her buttocks. She has some pain that radiates into her right leg with some numbness in her feet. Notes exacerbation of pain with certain activities, bending as well as lifting. IMPRESSION: 1. Development Alzheimer's disease. 2. History of renal cell carcinoma. 3. Hypertension. 4. Arthritis. 5. Peripheral vascular disease with femoral stents, right lower extremity. 6. Hypercholesterolemia. 7. Hypothyroidism. RECOMMENDATIONS: We discussed treatment options with the patient. At this juncture, she and her son are in agreement with trying to undergo physical therapy. A script for PT has been written. The patient will also continue with her medications as prescribed. Overall, she feels and her son feels that things are going reasonably well, she seems to be up and more active. She contemplates her daughter coming into town in January staying until 03/02/2019. Her daughter is a nurse. A script for physical therapy has been written. They will videotape her physical therapy session therefore would make it easier for her to remember what the exercises are that she should performed. She or her family members will contact us if they have any concerns. We would like to thank you for letting us participate in her care. We hope she continues to improve. ��������������������������������������������� ���������������������������������������� By: ��������������������������������������������� 1434 0258 Alice Gustafson MD /cecy
[2019-01-16 13:09] VITALS: BP 142/70
--- NOTE | 2019-01-16 13:28 | NUR ---
Pain Clinic Assessment: 1. History of Osteoarthritis: Right Lower Extremity Left Lower Extremity History of Rheumatoid Arthritis: Not Applicable 2. Height: 5 ft. 6 in. 167.6 cm. Weight: 185.2 lb. oz. 84.006 kg. Patient's BMI: 29.9 3. Vital Signs: BP: 142/70 Pulse: 66 Resp: 16 Temp: 02 Sat: 97 ECG Mon: 4. Pain Intensity: 5 5. Fall Risk: Dizziness: Y Needs help standing or walking: Y Fallen in the last 3 months: N Fall risk comments: 6. Patient on Blood Thinner: None 7. History of Hypertension: Y 8. Opioid Therapy greater than 6 weeks: Y Opiate Contract Signed: 01/16/19 9. Risk Assessment Tool Provided: low-1 10. Functional Assessment Tool: 11. Recreational Drug Use: Never Drug Type: Tobacco Use: Former Smoker Tobacco Type: Amount or Packs/day: How Many Years: Alcohol Use: No Frequency: Quant:
== END ==
LOC: PAIN 12-24 13:06
DX: G89.29 Other chronic pain (principal); M48.00 Spinal stenosis, site unspecified; I10 Essential (primary) hypertension; Z87.891 Personal history of nicotine dependence; E78.00 Pure hypercholesterolemia, unspecified; E03.9 Hypothyroidism, unspecified; Z88.8 Allergy status to other drugs, medicaments and biological substances; Z88.2 Allergy status to sulfonamides; Z79.899 Other long term (current) drug therapy; Z79.891 Long term (current) use of opiate analgesic

== ENCOUNTER → 2019-02-23 | Outpatient (CLI) | payer BC, OTHER ==
[~2019-02-23] VITALS: Ht 170.2 cm; Wt 82.6 kg
[~2019-02-23] MED LIST changes: +ESCITALOPRAM OX20 MG PO; +LASIX 40 MG TAB40 M2 PO; +POTASSIUM CHLO10 MEQ PO
[2019-02-23 08:09] VITALS: BP 125/67
--- NOTE | 2019-02-23 08:12 | NUR ---
Pain Clinic Assessment: 1. History of Osteoarthritis: Right Lower Extremity Left Lower Extremity History of Rheumatoid Arthritis: Not Applicable 2. Height: 5 ft. 7 in. 170.2 cm. Weight: 182.0 lb. oz. 82.555 kg. Patient's BMI: 28.5 3. Vital Signs: BP: 125/67 Pulse: 68 Resp: 16 Temp: 02 Sat: 95 ECG Mon: 4. Pain Intensity: 3 5. Fall Risk: Dizziness: N Needs help standing or walking: N Fallen in the last 3 months: N Fall risk comments: 6. Patient on Blood Thinner: None 7. History of Hypertension: Y 8. Opioid Therapy greater than 6 weeks: Y Opiate Contract Signed: 01/16/19 9. Risk Assessment Tool Provided: low-1 10. Functional Assessment Tool: 11. Recreational Drug Use: Never Drug Type: Tobacco Use: Former Smoker Tobacco Type: Amount or Packs/day: How Many Years: Alcohol Use: No Frequency: Quant:
--- NOTE | 2019-02-24 13:23 | HPC ---
[facility] [address] [place] [address] PAIN MANAGEMENT CONSULTATION Name: ROSE MARIE MERCER Room #: REG [place] Villarreal#: [id number] Admission: 02/23/19 ������������������ Attend Phys: Vania Saleh Discharge: ������������������ Date of : 39 Report #: [id number] THIS REPORT FOR: //name// CC: Vania Saleh Jeovanyrin Baig DATE OF SERVICE: 02/23/2019 CHIEF COMPLAINT: Back pain and right hip pain. HISTORY OF PRESENT ILLNESS: This is a 78-year-old female who returns to the pain clinic today with her daughter for a refill of her medications for her chronic back pain due to spinal stenosis. She tells me today she also has hip pain in her right hip and she is using a walker. Her pain today is 3/10, mostly an intermittent achy pain, worse with movement and bending, better with medication and lying down. Her daughter is a nurse, here from [place], telling me that she has been here 3 days and has not seen her mom take a pain pill in these last 3 days, so she does take them very sparingly. I did question the patient if she had gone to Physical Therapy that Dr. Gustafson had ordered in December. The patient tells me she has not gone. I talked to her and her daughter about the plan was to go to therapy and record her sessions so she knew what exercises to do at home, so she could remember them since she does have significant memory issues at times. The daughter will call her brother and find out why they did not go but was asking for another prescription for physical therapy today. ALLERGIES: MANUEL INHIBITORS and SULFA. MEDICATIONS: Celexa 20 mg, potassium 10 mEq, Lasix 40, hydrocodone 10/325 p.r.n., Synthroid 150 mcg, spironolactone 25 mg, clonidine 0.1 mg, carvedilol 12.5 mg, Namzaric 28/10 daily, gabapentin 100 mg, atorvastatin 40 mg, Ativan 0.5 mg t.i.d., Zetia 10 mg and aspirin. PQRS: The patient has osteoarthritic changes in her lower extremities. She is not being treated for rheumatoid arthritis. Height is 5 feet 7 inches, weight is 182 and BMI is 28. Vital signs: Blood pressure 125/67, pulse is 68, respirations 16 and oxygen sat is 95%. Pain score is 3/10. Fall risk. Denies dizziness. Does not need help walking or standing and has not fallen in the last 3 months. She does use a cane though. The patient is not on any blood thinners and does have a history of hypertension. Opioid therapy is greater than 6 weeks; therefore, an opiate signed contract is on the chart. Her risk assessment tool is low. Her functional assessment is 29/70. Recreational drug use, she denies. She is not a smoker and does not drink alcohol. We did check the prescription monitoring system. The patient is filling [address] [address] PAIN MANAGEMENT CONSULTATION Name: GIFTYNARINDERROSE MARIE Marie Room #: REG GUILLERMO Villarreal#: [id number] Admission: 02/23/19 ������������������ Attend Phys: Vania Saleh Discharge: ������������������ Date of : 39 Report #: [id number] appropriately for her hydrocodone. She recently started lorazepam due to a new CPAP she is wearing. Family members tell me that she does safeguard her medications. There is a drug screen on the chart. PHYSICAL EXAMINATION: GENERAL: This is a well-developed, well-nourished 78-year-old black female who appears her stated age. She is accompanied by her daughter. She is alert and orientated today. HEENT: Normocephalic and atraumatic. Extraocular eye muscles are intact. Mucous membranes are moist. EXTREMITIES: Upper extremity strength judged to be 5/5 for major muscle groups. The patient is without significant scoliosis, kyphosis or lordosis. Complains of some right hip pain today, does not radiate past her hip, does have pain also at the T12 area of her thoracic spine and in her lumbar area. Multiple trigger points in her back are assessed. IMPRESSION: 1. Alzheimer's disease. 2. History of renal cell carcinoma. 3. Osteoarthritis. 4. Chronic back pain. 5. Myofascial pain. 6. Complex medical management under terms of written opioid agreement. We reviewed the fact that opiate medications are being used to provide analgesia adequate to support activities of daily living, not attempting to achieve a specific pain score on the 0-10 Visual Analog Scale. The current opiate medications are providing sufficient analgesia to allow the patient to participate in activities of daily living. The patient is not exhibiting any aberrant behavior suggestive of drug diversion. The patient is not having any adverse reactions to medications. The patient is not suffering from daytime somnolence or mental acuity changes. The patient is managing opiate-induced constipation with appropriate ydnt-xek-sglerwe agents and dietary considerations. The patient was counseled on concern for caution with operating a motor vehicle while using opiate medications. A physical exam was performed and the patient's functional status was evaluated. All patients with back pain were advised against the bed rest greater than 4 days and were advised to return to normal activities. Pain score assessment was noted and the treatment plan was reviewed with the patient. All current medications, both prescribed and OTC were reviewed and reconciled on the electronic medical record. Tobacco screening was accomplished and smoking cessation was advised when indicated. BMI was noted and diet/exercise modification was recommended for all patients following outside normal parameters. [facility] [address] [address] PAIN MANAGEMENT CONSULTATION Name: ROSE MARIE MERCER Room #: REG [facility].#: [id number] Admission: 02/23/19 ������������������ Attend Phys: Vania Saleh Discharge: ������������������ Date of : 39 Report #: [id number] I reviewed with the patient today their responsibilities to safeguard prescription medications, reviewed their responsibility to utilize medications only as prescribed by the physician. They are to seek and receive pain medications only from 1 physician group ( [facility]). They are to use 1 pharmacy and keep the clinic informed if they change pharmacies. Their responsibilities include making followup visits in a timely fashion and to avoid abrupt discontinuation of medication usage. Their responsibilities further include bringing their medications (bottles from the pharmacy with residual pills) to the visit for possible confirmation of pill counts and the patient understands it is their responsibility to submit to random drug screens to ensure both that the medications prescribed are present, and that no other controlled substances are present. All prescriptions provided today were generated electronically. RECOMMENDATIONS: 1. We discussed treatment options with the patient and her daughter today. At this visit, we will rewrite a script for physical therapy and the daughter will make sure that she has at least started this therapy prior to her return back home. They will videotape her exercises, so the patient can practice these at home herself. 2. Script given for hydrocodone 10/325 up to 3 times a day, #90 given. The patient does use these sparingly, so her morphine milligram equivalent is 30 or less per day. 3. The patient will return as needed for medications. The patient is seen today in collaboration with Dr. Price Gustafson. ��������������������������������������������� <ELECTRONICALLY SIGNED> ���������������������������������������� By: Vania Saleh ��������������������������������������������� 02/24/19 1323 [id number] Vania Saleh /nt
== END ==
LOC: PAIN 06:43
DX: M16.11 Unilateral primary osteoarthritis, right hip (principal); M54.9 Dorsalgia, unspecified; G30.9 Alzheimer's disease, unspecified; M79.18 Myalgia, other site; Z79.899 Other long term (current) drug therapy

== ENCOUNTER → 2019-03-18 | Outpatient (CLI) | payer BC, OTHER ==
[~2019-03-18] VITALS: Ht 170.2 cm; Wt 84.4 kg
[~2019-03-18] MED LIST changes: +SYNTHROID125 MC1 PO
--- NOTE | ~2019-03-18 | HPC ---
[facility] [place] [address] PAIN MANAGEMENT CONSULTATION Name: SYLVIEROSE MARIE A Room #: REG [facility] Phil#: [id number] Admission: 03/18/19 ������������������ Attend Phys: Alice Gustafson MD Discharge: ������������������ Date of : 39 Report #: [id number] THIS REPORT FOR: //name// CC: Jeovany Gustafson DATE OF SERVICE: 03/18/2019 CHIEF COMPLAINT: Here for medication renewal, things are going reasonably well. I think an additional amount of time in PT would be helpful. HISTORY: The patient is a 78-year-old female who has been followed in the pain clinic because of chronic pain. She has a history of spinal stenosis, involves her right hip. She has been using a walker. She has undergone physical therapy. Her son states that the physical therapy has been helpful. She has been more active with less discomfort. He feels that twice a week has been beneficial and would like for an additional few weeks to help her continue to be more active and control pain. She had no complications from her medications. Feels that the current use of hydrocodone 10 mg 1 p.o. t.i.d., seems to be a reasonably good dosing at this point. Usually takes 2 tablets earlier in the day and in the evening should she have more problem is followed by the second dose. The patient agrees that things seem to be working well. We will continue with her medications. ALLERGIES: MANUEL INHIBITORS AND SULFA. CURRENT MEDICATIONS: Celexa 20 mg, potassium 10 mEq, Lasix 40 mg, hydrocodone 10/325 p.r.n., Synthroid 150 mcg, spironolactone 25 mg, clonidine 0.1 mg, carvedilol 12.5 mg, Namzaric 28/10 daily, gabapentin 100 mg, atorvastatin 40 mg, Ativan 0.5 mg t.i.d., Zetia 10 mg, and aspirin 81 mg. PAIN CLINIC ASSESSMENT AND PQRS: 1. The patient has some arthritic changes in the lower extremity. She has not been treated for rheumatoid arthritis. 2. Height 5 feet 7 inches, weight 186 pounds, BMI is 29.1. 3. Vital Signs: Blood pressure 148/75, pulse 63, respiratory rate 15, room air saturation is 96%. 4. Pain intensity 4-5/10. 5. Fall risk. The patient has not fallen in the last 3 months. The patient uses a cane when at home. 6. Blood thinner. The patient is not on a blood thinning medication. 7. Hypertension. The patient is treated for hypertension. 8. Opioids greater than 6 weeks. The patient receives medication from one source, the pain clinic. 9. Risk assessment tool, low. 10. Functional assessment tool . [facility] [address] [place] [address] PAIN MANAGEMENT CONSULTATION Name: ROSE MARIE MERCER Edi [id number] Admission: 03/18/19 ������������������ Attend Phys: Alice Gustafson MD Discharge: ������������������ Date of : 39 Report #: [id number] 11. Recreational drug use. The patient denies. 12. Tobacco: The patient is a former smoker. 13. Alcohol: The patient denies use of alcoholic beverages at this juncture. PHYSICAL EXAMINATION: GENERAL: The patient is a well-developed, well-nourished black female, appears her stated age. She is accompanied by her son. She appears in good mood. Affect is appropriate. Speech is fluent. The patient appears to be cognizant of where she is. She does introduce her son to us as her son on a number of occasions. The patient has pain and discomfort in lower portion of her back with pain in the lower portion of her back and down the right hip. The patient without significant scoliosis, kyphosis, or lordosis. IMPRESSION: 1. Alzheimer's disease. 2. History of renal cell carcinoma. 3. Osteoarthritis. 4. Chronic back pain. 5. Myofascial pain. 6. Complex medical management using opioids to help control the patient's pain. RECOMMENDATIONS: We discussed treatment options with her son. He overall feels that things are going reasonably well. States that she did have a good day with the physical therapist. She has been attended to by one of the physical therapist in the department here at [facility]. The patient's son states she seems to have a good rapport with him. He would like to have her follow up additional 2 times a week for a few weeks. He feels that she is more active. Having less pain. Feels like the pain medication that she is taking is reasonable. He and she are reasonably happy at this juncture with the treatment course. Her daughter who lives in [place] will come to see her in a few weeks. We would like to thank you for letting us participate in her care. We hope she continues to improve. ��������������������������������������������� ���������������������������������������� By: ��������������������������������������������� [id number] Alice Gustafson MD /cecy
[2019-03-18 10:35] VITALS: BP 148/75
--- NOTE | 2019-03-18 10:40 | NUR ---
Pain Clinic Assessment: 1. History of Osteoarthritis: Right Lower Extremity Left Lower Extremity History of Rheumatoid Arthritis: Not Applicable 2. Height: 5 ft. 7 in. 170.2 cm. Weight: 186.0 lb. oz. 84.369 kg. Patient's BMI: 29.1 3. Vital Signs: BP: 148/75 Pulse: 63 Resp: 15 Temp: 02 Sat: 96 ECG Mon: 4. Pain Intensity: 4-5 5. Fall Risk: Dizziness: N Needs help standing or walking: Y Fallen in the last 3 months: N Fall risk comments: USES CANE 6. Patient on Blood Thinner: None 7. History of Hypertension: Y 8. Opioid Therapy greater than 6 weeks: Y Opiate Contract Signed: 01/16/19 9. Risk Assessment Tool Provided: low-1 10. Functional Assessment Tool: 11. Recreational Drug Use: Never Drug Type: Tobacco Use: Former Smoker Tobacco Type: Amount or Packs/day: How Many Years: Alcohol Use: No Frequency: Quant:
== END ==
LOC: PAIN 10:05
DX: M79.18 Myalgia, other site (principal); G89.29 Other chronic pain; M19.90 Unspecified osteoarthritis, unspecified site; G30.9 Alzheimer's disease, unspecified; Z79.891 Long term (current) use of opiate analgesic; Z85.53 Personal history of malignant neoplasm of renal pelvis

== ENCOUNTER 2019-04-18 21:54 | Emergency (ER) | payer BC, OTHER ==
[~2019-04-18] VITALS: Ht 152.4 cm; Wt 81.7 kg
[2019-04-18] MEDS ORDERED: NORCO 5-325 TA1 EAC1 PO (22:01)
[2019-04-18 23:30] VITALS: BP 148/66
== END 2019-04-18 23:30 | disposition home or self-care (01) ==
LOC: ER 21:54
DX: S60.212A Contusion of left wrist, initial encounter (principal); Z87.891 Personal history of nicotine dependence; Z88.2 Allergy status to sulfonamides; Z88.8 Allergy status to other drugs, medicaments and biological substances; Z96.642 Presence of left artificial hip joint; Z98.890 Other specified postprocedural states; Z96.653 Presence of artificial knee joint, bilateral; W01.0XXA Fall on same level from slipping, tripping and stumbling without subsequent striking against object, initial encounter; Y92.89 Other specified places as the place of occurrence of the external cause; Y93.01 Activity, walking, marching and hiking; Y99.8 Other external cause status

== ENCOUNTER → 2019-06-12 | Outpatient (CLI) | payer BC, OTHER ==
[~2019-06-12] VITALS: Ht 170.2 cm; Wt 84.0 kg
[~2019-06-12] MED LIST changes: -CARVEDILOL12.5 MG PO; +CARVEDILOL25 MG PO; +NORCO 5-325 TA1 EAC1 PO
[2019-06-12 09:15] VITALS: BP 126/74
--- NOTE | 2019-06-12 09:22 | NUR ---
Pain Clinic Assessment: 1. History of Osteoarthritis: Right Lower Extremity Left Lower Extremity History of Rheumatoid Arthritis: Not Applicable 2. Height: 5 ft. 7 in. 170.2 cm. Weight: 185.2 lb. oz. 84.006 kg. Patient's BMI: 29.0 3. Vital Signs: BP: 126/74 Pulse: 66 Resp: 16 Temp: 02 Sat: 95 ECG Mon: 4. Pain Intensity: 5-6 5. Fall Risk: Dizziness: N Needs help standing or walking: Y Fallen in the last 3 months: Y Fall risk comments: USES CANE 6. Patient on Blood Thinner: None 7. History of Hypertension: Y 8. Opioid Therapy greater than 6 weeks: Y Opiate Contract Signed: 01/16/19 9. Risk Assessment Tool Provided: low-1 10. Functional Assessment Tool: 11. Recreational Drug Use: Never Drug Type: Tobacco Use: Former Smoker Tobacco Type: Amount or Packs/day: How Many Years: Alcohol Use: No Frequency: Quant:
--- NOTE | 2019-06-24 09:44 | HPC ---
[facility] [place] [address] PAIN MANAGEMENT CONSULTATION Name: ROSE MARIE MERCER Edi [id number] Admission: 06/12/19 Attend Phys: Alice Gustafson MD Discharge: Date of : 39 Report #: [id number] THIS REPORT FOR: //name// CC: Jeovany Gustafson DATE OF SERVICE: 06/12/2019 CHIEF COMPLAINT: Here for medication renewal. HISTORY: The patient is a 78-year-old female who has been followed in the pain clinic because of chronic pain. She has problems with spinal stenosis. She has undergone physical therapy. She feels that things have improved with physical therapy, but still has back pain. She continues to do her exercises under the auspices of her son and family members. Overall, things are going reasonably well. She feels that the pain medications are helpful. Not having any increase in cognitive dysfunction. She and her son both feel that things are going reasonably well and we will continue with her current medications. ALLERGIES: MANUEL INHIBITORS AND SULFA. CURRENT MEDICATIONS: Celexa 20 mg, potassium 10 mEq, Lasix 40 mg, hydrocodone 10/325, Synthroid 150 mcg, spironolactone 25 mg, clonidine 0.1 mg, carvedilol 12.5 mg, Namzaric 28/10, gabapentin 100 mg, Lipitor 40 mg, Ativan 0.5 mg t.i.d., Zetia 10 mg, and aspirin. PAIN CLINIC ASSESSMENT/PQRS: 1. The patient has some arthritic changes in the right as well as the left lower extremity. She is not being treated for rheumatoid arthritis. 2. Height 5 feet 7 inches, weight 185 pounds, BMI is 29.0. 3. Vital signs: Blood pressure 126/74, pulse 66, respiratory rate 16, room air saturation 95%. 4. Pain intensity 5-6/10. 5. Fall risk. The patient has not fallen in the last 3 months. The patient uses a cane. 6. Blood thinner. The patient is not on a blood thinning medication. 7. Hypertension. The patient is being treated for hypertension. 8. Opioids greater than 6 weeks. The patient received medication from one source, pain clinic. 9. Risk assessment tool, low for opioid use. 10. Functional assessment tool . 11. Recreational drug use. The patient denies. 12. Tobacco: The patient denies use of tobacco. 13. Alcohol: The patient denies frequent use of alcoholic beverages. [address] [address] PAIN MANAGEMENT CONSULTATION Name: ROSE MARIE MERCER Room #: REG [facility]#: [id number] Admission: 06/12/19 Attend Phys: Alice Gustafson MD Discharge: Date of : 39 Report #: [id number] PHYSICAL EXAMINATION: GENERAL: The patient is a well-developed, well-nourished 78-year-old black female. She is alert and oriented x 3. She is accompanied by her son. She is alert and oriented x 3. Her affect appears appropriate. HEENT: Normocephalic, atraumatic. Extraocular eye muscles intact. Sclerae nonicteric. Mucous membranes are moist. MUSCULOSKELETAL: Upper extremity muscle strength judged to be 5/5 for the major muscle groups in the upper extremity. The patient is without significant scoliosis, kyphosis, or lordosis. Does complain of some right hip pain. Does have some pain in the thoracic spine area. Has had trigger point areas in the back. IMPRESSION: 1. Alzheimer's disease. 2. History of renal cell carcinoma. 3. Osteoarthritis. 4. Chronic back pain. 5. Myofascial pain. 6. Complex medical management with opioid use to help control pain. RECOMMENDATIONS: We discussed treatment options with the patient. The patient feels her medications are working reasonably well. Her son feels the medications are working reasonably well. She is not having any increased problems with memory with use of these medications. We have discussed the possible problems with opioids. They could become less effective over time secondary to development of tolerance. Overall, she feels that things are going reasonably well and we will continue with her current regimen of hydrocodone on 2-month basis. A script for hydrocodone 10/325 one p.o. t.i.d. have been provided. A second month of hydrocodone 10 mg 1 p.o. t.i.d. has been written as well. The patient will call us, if she has any problems. Her son will call us should she have any concerns. We would like to thank you for letting us participate in her care. We hope she continues to improve. <ELECTRONICALLY SIGNED> By: Alice Gustafson MD 06/24/19 0944 [id number] Alice Gustafson MD /[facility]
== END ==
LOC: PAIN 06:37
DX: Z76.0 Encounter for issue of repeat prescription (principal); G89.29 Other chronic pain; M19.90 Unspecified osteoarthritis, unspecified site; G30.9 Alzheimer's disease, unspecified; F02.80 Dementia in other diseases classified elsewhere, unspecified severity, without behavioral disturbance, psychotic disturbance, mood disturbance, and anxiety; Z79.899 Other long term (current) drug therapy; Z85.53 Personal history of malignant neoplasm of renal pelvis; Z79.891 Long term (current) use of opiate analgesic; Z88.2 Allergy status to sulfonamides

== ENCOUNTER → 2019-08-28 | Outpatient (CLI) | payer BC, OTHER ==
[~2019-08-28] VITALS: Ht 167.6 cm; Wt 86.6 kg
[~2019-08-28] MED LIST changes: +AMITRIPTYLINE H10 M1 PO; +ARICEPT10 MG PO
[2019-08-28 13:27] VITALS: BP 164/81
--- NOTE | 2019-08-28 13:32 | NUR ---
Pain Clinic Assessment: 1. History of Osteoarthritis: SPINE B/L KNEES B/L HIPS History of Rheumatoid Arthritis: Not Applicable 2. Height: 5 ft. 6 in. 167.6 cm. Weight: 191.0 lb. oz. 86.637 kg. Patient's BMI: 30.8 3. Vital Signs: BP: 164/81 Pulse: 72 Resp: 16 Temp: 02 Sat: 98 ECG Mon: 4. Pain Intensity: 8-THIS AM, LOWER USUALLY 5. Fall Risk: Dizziness: N Needs help standing or walking: N Fallen in the last 3 months: N Fall risk comments: USES CANE 6. Patient on Blood Thinner: None 7. History of Hypertension: Y 8. Opioid Therapy greater than 6 weeks: Y Opiate Contract Signed: 01/16/19 9. Risk Assessment Tool Provided: low-1 10. Functional Assessment Tool: 11. Recreational Drug Use: Never Drug Type: Tobacco Use: Former Smoker Tobacco Type: Amount or Packs/day: How Many Years: Alcohol Use: No Frequency: Quant:
--- NOTE | 2019-09-01 14:24 | HPC ---
[facility] [address] [place] [address] PAIN MANAGEMENT CONSULTATION Name: ROSE MARIE MERCER Edi Room #: REG GUILLERMO Phil#: [id number] Admission: 08/28/19 Attend Phys: Alice Gustafson MD Discharge: Date of : 39 Report #: [id number] THIS REPORT FOR: //name// CC: Jeovany Gustafson DATE OF SERVICE: 08/28/2019 CHIEF COMPLAINT: Pain in the right hip and the pain is helped by the medication. HISTORY OF PRESENT ILLNESS: The patient is a 78-year-old female who has been followed in the Pain Clinic. As you recall, she suffers from spinal stenosis. She has undergone physical therapy. She states that she continues to do exercises at home. She did videotape and continues to follow its directions. She is accompanied today by her daughter who is a nurse. She lives in [place]. She has returned today with the hopes of renewing her medications. She feels overall the meds are adequate. ALLERGIES: MANUEL INHIBITORS, SULFA. MEDICATIONS: Celexa 20 mg, potassium 10 mEq, Lasix 40 mg, hydrocodone 10/325, Synthroid 150 mcg, spironolactone 25 mg, clonidine 0.1 mg, carvedilol 12.5 mg, Namzaric 28/10 mg, Gabapentin 300 mg, Lipitor 40 mg, Ativan 0.5 mg t.i.d., and Zetia 10 mg and aspirin. PAIN CLINIC ASSESSMENT/PQRS: 1. The patient has a history of osteoarthritic complaints involving her spine, bilateral knees as well as bilateral hips. Right hip is more problematic. 1. Height 5 feet 6 inches, weight 191 pounds, BMI is 38. 2. Blood pressure 154/81, pulse 72, respiratory rate 16, and room air saturation 98%. 3. Pain intensity, 8/10 in the morning, usually lower. 1. Fall risk. The patient has not fallen. She is walking with a cane. 2. Blood thinner. The patient is not on a blood thinning medication. 3. Hypertension. The patient is being treated for hypertension. 4. Opioids. The patient received medication from one source, the Pain Clinic. 5. Risk assessment tool, low for opioid use. 6. Functional assessment tool, . 7. Recreational drug use: The patient denies. 8. Tobacco: The patient denies tobacco, denies vaping. 9. Alcohol. The patient denies use of alcoholic beverages. PHYSICAL EXAMINATION: GENERAL: The patient is a very pleasant black female. [place] [address] PAIN MANAGEMENT CONSULTATION Name: ROSE MARIE MERCER Room #: REG [facility] PaulaNura#: [id number] Admission: 08/28/19 Attend Phys: Alice Gustafson MD Discharge: Date of : 39 Report #: [id number] NEUROLOGIC: She is alert and oriented x 3. She is accompanied by her daughter who lives in [place]. HEENT: Normocephalic, atraumatic. Extraocular eye muscles intact. Sclerae nonicteric. Mucous membranes are moist. NECK: Without adenopathy or JVD. Muscle strength judged to be 5-/5 in the upper extremity. MUSCULOSKELETAL: The patient is without significant scoliosis, kyphosis or lordosis. Does complain of some pain in the right hip. Does use a cane for walking. IMPRESSION: 1. Alzheimer dementia. 2. History of renal cell carcinoma. 3. Osteoarthritis. 4. Chronic back pain. 5. Myofascial pain. 6. Complex medical regimen using opioids to help control pain. RECOMMENDATIONS: We discussed treatment options with the patient's daughter as well as with the patient. Overall, she feels doing reasonably well. Her son continues to monitor her care. She has one primary caregiver who appears to not accompanying her today. Her daughter lives in [place] is accompanying her. She feels that overall she is ____ stable and feels that her medications are working reasonably well. They both would like to continue with the medications. A script for her medications have been written. The patient will continue with hydrocodone 10/325 one p.o. t.i.d. as needed. She will also continue with her exercise as tolerated. We would like to thank you for letting us participate in her care. We hope she continues to improve. <ELECTRONICALLY SIGNED> By: Alice Gustafson MD 09/01/19 1424 [id number] Alice Gustafson MD /nt
== END ==
LOC: PAIN 08-19 06:51
DX: G30.9 Alzheimer's disease, unspecified (principal); F02.80 Dementia in other diseases classified elsewhere, unspecified severity, without behavioral disturbance, psychotic disturbance, mood disturbance, and anxiety; M19.90 Unspecified osteoarthritis, unspecified site; M54.5 Low back pain; M79.18 Myalgia, other site

== ENCOUNTER → 2019-11-25 | Outpatient (CLI) | payer BC, OTHER ==
[~2019-11-25] VITALS: Ht 167.6 cm; Wt 79.4 kg
[2019-11-25 10:27] VITALS: BP 114/65
--- NOTE | 2019-11-25 10:36 | NUR ---
Document as much information as known. If only year is known, type in year only. DO NOT type in UNKNOWN or NEVER!
--- NOTE | 2019-11-25 10:37 | NUR ---
Pain Clinic Assessment: 1. History of Osteoarthritis: SPINE B/L KNEES B/L HIPS History of Rheumatoid Arthritis: Not Applicable 2. Height: 5 ft. 6 in. 167.6 cm. Weight: 175.0 lb. oz. 79.380 kg. Patient's BMI: 28.3 3. Vital Signs: BP: 114/65 Pulse: 66 Resp: 20 Temp: 02 Sat: 96 ECG Mon: 4. Pain Intensity: 7 5. Fall Risk: Dizziness: Y Needs help standing or walking: Y Fallen in the last 3 months: N Fall risk comments: USES CANE 6. Patient on Blood Thinner: None 7. History of Hypertension: Y 8. Opioid Therapy greater than 6 weeks: Y Opiate Contract Signed: 01/16/19 9. Risk Assessment Tool Provided: low-1 10. Functional Assessment Tool: 11. Recreational Drug Use: Never Drug Type: Tobacco Use: Former Smoker Tobacco Type: Amount or Packs/day: How Many Years: Alcohol Use: No Frequency: Quant:
--- NOTE | 2019-11-27 08:21 | HPC ---
[facility] [place] [address] [address] PAIN MANAGEMENT CONSULTATION Name: ROSE MARIE MERCER Room #: REG GUILLERMO Hyatt#: [id number] Admission: 11/25/19 Attend Phys: Alice Gustafson MD Discharge: Date of : 38 Report #: [id number] THIS REPORT FOR: cc: Jeovany Baig MD,Jeovany Gustafson,Alice Fontaine MD ~ CC: Jeovany Gustafson DATE OF SERVICE: 11/25/2019 CHIEF COMPLAINT: Here for medication renewal. HISTORY: The patient is an 79-year-old female who has been followed in the pain clinic because of chronic pain. 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 She has over the years noted a worsening of her memory. She is being followed by family members at home. She feels that her medications are helpful. Her son feels that her medications are helpful. They returned today for renewal of her medications. They have not noted any untoward problems with the medication. They enable her to continue to be reasonably active. ALLERGIES: MANUEL INHIBITORS AND SULFA. CURRENT MEDICATIONS: Celexa 20 mg, potassium 10 mEq, Lasix 40 mg, hydrocodone 10/325, Synthroid 150 mcg, spironolactone 25 mg, clonidine 0.1 mg, carvedilol 12.5 mg, Namzaric 20/10, gabapentin 100 mg, Lipitor 40 mg, Ativan 0.5 mg t.i.d., Zetia 10 mg, aspirin. PAIN CLINIC ASSESSMENT AND PQRS: 1. The patient has some arthritic changes in her right as well as her left lower extremity. The patient is not being treated for rheumatoid arthritis. 2. Height 5feet 6 inches, weight 175 pounds, BMI is 28. 3. Vital signs: Blood pressure 114/65, pulse 66, respiratory rate 20, room air saturation is 96%. 4. Pain intensity 7/10. 5. Fall history: The patient uses a cane. She has not fallen. 6. Blood thinner. The patient is not on a blood thinning medication. 7. Hypertension. The patient is being treated for hypertension. 8. Opioids greater than 6 weeks. The [facility]. 9. Risk assessment tool, low for opioid use. 10. Functional assessment tool . 11. Recreational drug use: The patient denies. 12. Tobacco: The patient is a former smoker. 13. Alcohol. The patient denies use of alcoholic beverages. [facility] [address] [place] [address] PAIN MANAGEMENT CONSULTATION Name: ROSE MARIE MERCER Room #: REG [facility]#: [id number] Admission: 11/25/19 Attend Phys: Alice Gustafson MD Discharge: Date of : 39 Report #: [id number] PHYSICAL EXAMINATION: GENERAL: The patient is a well-developed, well-nourished black female, appears her stated age. She is alert and oriented x 2. Her son is available. He provides the history. The patient smiles and corroborates that his responses are correct. HEENT: Normocephalic, atraumatic. Extraocular eye muscles intact. Sclerae nonicteric. MUSCULOSKELETAL: Upper extremity muscle strength judged to be 5-/5 for the major muscle groups in the upper extremity. The patient without significant scoliosis, kyphosis or lordosis. The patient does have some right hip pain. Does have some pain in the thoracic area. Has pain in the low back. IMPRESSION: 1. Alzheimer's disease. 2. History of renal cell carcinoma. 3. Osteoarthritis. 4. Chronic back pain. 5. Myofascial pain. 6. Complex medical management with opioids used to help control pain. RECOMMENDATIONS: We discussed treatment with the patient. At this juncture, she is doing reasonably well. We have been providing her with 2 months of medication. Given that the coronavirus is more pronounced and problematic at this juncture, we will increase the patient's opioid medications to a three month amount. A script for her medications of hydrocodone 10/325 one p.o. t.i.d. have been rewritten. The patient's family does not feel that she has been over sedated and feels that the medications appear to be helpful. A script for her hydrocodone has been provided for the next 3 months. Her son will call if he has any concerns. We would like to thank you for letting us participate in her care. We hope she continues to improve. <ELECTRONICALLY SIGNED> By: Alice Gustafson MD 11/27/19 0821 1612 1855 Alice Gustafson MD /LUIS DANIEL
== END ==
LOC: PAIN 06:49
DX: M79.18 Myalgia, other site (principal); G30.9 Alzheimer's disease, unspecified; M19.90 Unspecified osteoarthritis, unspecified site; M54.5 Low back pain; F11.20 Opioid dependence, uncomplicated; Z85.528 Personal history of other malignant neoplasm of kidney; Z88.2 Allergy status to sulfonamides; Z88.8 Allergy status to other drugs, medicaments and biological substances; Z79.899 Other long term (current) drug therapy

== ENCOUNTER 2020-03-30 10:48 | Emergency (ER) | payer BC, OTHER ==
[~2020-03-30] VITALS: Ht 170.2 cm; Wt 76.7 kg
--- NOTE | ~2020-03-30 | HC ---
[facility] [place] [address] [address] CONSULTATION Name: ROSE MARIE MERCER [id number] Admission: 03/30/20 Attend Phys: Discharge: 03/30/20 Date of : 39 Report #: [id number] THIS REPORT FOR: cc: Jeovany Baig MD, Eric K. MD Khosla, Parveen K. MD ~ CC: Jeovany Miranda DATE OF SERVICE: 03/30/2020 HISTORY OF PRESENT ILLNESS: This is an 79-year-old female patient who was evaluated by me for the possibility of stroke. The son provided most of the history because the patient has advanced dementia. He gives a history that the patient took her antihypertensive and went to the pain clinic. Then, her speech got slurred and she had some facial droop noted, but her blood pressure was 70 systolic at that time. She does not know what her blood pressure is usually because she does not take the blood pressure in spite of the fact that she has a blood pressure cuff at home. The patient is back to her baseline now. In the Emergency Room, the patient had a noncontrast CT of the head, CT angiogram of the head and neck and perfusion study and a head MRI. They were both basically unremarkable. The patient does have a meningioma, which is an incidental finding. She also has a left subclavian stenosis, that will be also an incidental finding because the present symptoms occurred in relation to hypotension and not using her arm. REVIEW OF SYSTEMS: Indicated that she has pretty significant dementia. Her family doctor is Dr. Baig. She follows up with the neurologist at [facility]. She takes Aricept. It is not clear if that has helped her much. She had a hip surgery. She has laminectomy in the past. She also had a partial nephrectomy in the past. She has no prior history of stroke. There is no history of cardiac problem, but looks like she had stents in the past. That was the relevant 14-point review of systems. PAST MEDICAL HISTORY: Negative for stroke, but looks like the patient had nephrectomy, that was a partial nephrectomy. FAMILY HISTORY: Unremarkable. SOCIAL HISTORY: She has used cigarettes. PHYSICAL EXAMINATION: Indicates that this patient is alert. She does not know what month it is. She does not know what day it is. She does not know what hospital she is in. Her speech is intact and pretty fluent and it looks like she has a pretty significant dementia. Cranial nerve examination, the best it could be carried out does not appear to be showing any focal abnormality. She [address] [address] CONSULTATION Name: ROSE MARIE MERCER Room #: [facility] Phil#: [id number] Admission: 03/30/20 Attend Phys: Discharge: 03/30/20 Date of : 39 Report #: [id number] moves all 4 extremities. Her position sense is intact. Reflexes are somewhat diminished. Tone looks symmetrical. I could not look at the fundus because she could not cooperate. There is no meningeal sign. Her imaging studies were reviewed. Her labs were reviewed and her blood pressure is fairly maintained at 144/76, respirations 20, pulse is 69. White count of 6.3. Cardiac examination appears unremarkable. No respiratory difficulty was noticed. IMPRESSION: I suspect the patient's episode was because of hypotension. There were some focal features that are worrisome. It does not look the patient had any subclavian steal syndrome because it happened in light of hypotension. I discussed with the Emergency Room physician that with ABCD criteria, this patient should be admitted for further workup. She tells me that hospitalist does not want to admit and want to send her home. In those circumstances, the patient's CT angiogram is already done and she had a left subclavian stenosis, which is probably an incidental finding, but she should follow up with Vascular. She should have an echocardiogram done as an outpatient. By notes, it looks like she has some partial nephrectomy and her GFR was only 44 and she did have a CT stroke protocol, looks like. Because of that, I talked to Emergency Room physician that they should consider giving her some fluids if there is no contraindication like congestive heart failure. She is already on aspirin. I will not change it to Plavix because the present episode appeared to occur in relation to hypotension. She needs to take her blood pressure several times a day and she needs to talk to Dr. Baig because she may need readjustment of her antihypertensive. All of it was discussed with the patient. The advantages and disadvantages of outpatient and inpatient were discussed. The son says he is there with her all the time and he wants to take her home and will bring her back in case any further symptoms occur. Thank you very much for this referral, and the patient was discussed with Emergency Room physician multiple times. By: [id number] Maciej Ochoa MD /nt
[~2020-03-30 10:48] MED LIST changes: -AMLODIPINE BESY10 MG PO; -ASA81BEC PO; -ESCITALOPRAM OX10 MG PO; -GABAPENTIN100 MG PO; -KLOR-CON 10 ER10 MEQ PO; -LASIX 40 MG TAB40 MG PO; -LORAZEPAM 0.50.5 MG PO; -MUPIROCIN1 GM TOP; -PROAIR DIGIHAL90 MCG INH; -RISPERIDONE 00.25 MG PO
[2020-03-30] MEDS ORDERED: HYDROCODON-ACE1 EAC5 PO (11:08)
[2020-03-30 11:15] LABS: ABSOLUTE NEUTROPHILS 4.4 thou/uL (1.4-8.2); BASOPHILS 0.4 % (0.0-2.0); EOSINOPHILS 4.4 % (0.0-3.0); HEMATOCRIT 35.9 % (37.0-47.0); HEMOGLOBIN 12.6 gm/dL (12.0-15.0); LYMPHOCYTES 19.9 % (24.0-44.0); MCH 31.4 pg (26.0-34.0); MCHC 35.2 g/dL (28.0-37.0); MCV 89.4 fL (80.0-100.0); MONOCYTES 5.1 % (1.0-8.0); PLATELET COUNT 155 thou/uL (150-400); POLYS 70.2 % (36.0-66.0); RBC 4.02 mil/uL (4.20-5.00); RDW 13.8 % (10.5-14.5); WBC 6.3 thou/uL (4.0-11.0)
[2020-03-30 11:18] LABS: APTT 26.6 Seconds (24.5-32.8); PROTIME 10.7 Seconds (9.3-11.4)
[2020-03-30 11:27] LABS: ANION GAP 8 mmol/L (7-16); BUN 14 mg/dL (7-18); CALCIUM 8.6 mg/dL (8.5-10.1); CHLORIDE 108 mmol/L (98-107); CO2 26 mmol/L (21-32); CREATININE 1.4 mg/dL (0.6-1.0); GLUCOSE 143 mg/dL (74-106); POTASSIUM 3.3 mmol/L (3.5-5.1); SODIUM 142 mmol/L (136-145)
[2020-03-30 11:38] LABS: ALBUMIN 3.5 g/dL (3.4-5.0); DIRECT BILIRUBIN 0.1 mg/dL (<0.1-0.2); SGOT 17 U/L (15-37); SGPT 19 U/L (30-65); TOTAL BILIRUBIN 0.8 mg/dL (0.2-1.0); TOTAL PROTEIN 6.5 g/dL (6.4-8.2); TROPONIN-I <0.06 ng/mL (<0.06)
--- NOTE | 2020-03-30 13:51 | EKG ---
[facility] [address] [place] [address] ELECTROCARDIOGRAM REPORT Name: ROSE MARIE MERCER Room #: REG [facility]#: [id number] Admission: 03/30/20 Attend Phys: Discharge: Date of : 39 Report #: [id number] THIS REPORT FOR: cc: Jeovany Baig MD, Eric K. MD Couchonnal, Luis F. MD ~ THIS REPORT FOR: //name// [facility] ED Test Date: 2020-03-30 Test Time: 11:57:20 Pat Name: ROSEM ARIE MERCER Department: Room: Gender: F Cane Loader: julio : 1940 Requested By: Meaghan Miranda Order Number: [id number] MD: Santos Abbott Measurements Intervals [place] Rate: 63 P: 35 WV: 183 QRS: -3 QRSD: 115 T: -22 QT: 450 QTc: 461 Interpretive Statements Sinus rhythm Ventricular premature complex Nonspecific intraventricular conduction delay Nonspecific T abnormalities, anterior leads Compared to ECG 10/10/2017 17:32:45 Ventricular premature complex(es) now present Intraventricular conduction delay now present T-wave abnormality now present Electronically Signed On 03-30-2020 13:50:57 CDT by Santos Abbott [email or web address] <ELECTRONICALLY SIGNED> By: Santos Abbott MD 03/30/20 1350 1157 1157 Santos Abbott MD /EPI
[2020-03-30] MEDS ORDERED: ARICEPT10 MG PO (14:57)
[2020-03-30] MEDS ORDERED: LORAZEPAM 0.50.5 MG PO (14:58)
[2020-03-30] MEDS ORDERED: RISPERIDONE 00.25 MG PO (14:59)
[2020-03-30 15:00] LABS: FOLIC ACID 6.9 ng/mL (8.6-58.9); TSH 6.136 uIU/mL (0.358-3.740)
[2020-03-30] MEDS ORDERED: PROAIR DIGIHAL90 MCG INH (15:00)
[2020-03-30 15:02] LABS: URINE BILIRUBIN NEGATIVE (Negative); URINE BLOOD NEGATIVE (Negative); URINE CLARITY CLEAR; URINE COLOR YELLOW; URINE GLUCOSE-RANDOM* NEGATIVE (Negative); URINE KETONES NEGATIVE (Negative); URINE LEUKOCYTES-REFLEX NEGATIVE (Negative); URINE NITRITE-REFLEX NEGATIVE (Negative); URINE PROTEIN (DIPSTICK) NEGATIVE (Negative); URINE UROBILINOGEN 0.2 E.U./dl (0.2-1.0)
[2020-03-30 16:47] VITALS: BP 136/82
[2020-03-31 06:06] LABS: GLYCOHEMOGLOBIN (HGB A1C) 5.3 % (4.8-5.6)
== END 2020-03-30 16:50 | disposition home or self-care (01) ==
LOC: ER 10:48
PROVIDERS: Emergency Medicine; Nurse Practitioner
DX: G45.9 Transient cerebral ischemic attack, unspecified (principal); Z87.891 Personal history of nicotine dependence; Z79.899 Other long term (current) drug therapy; Z88.2 Allergy status to sulfonamides; Z88.8 Allergy status to other drugs, medicaments and biological substances

== ENCOUNTER → 2020-03-30 | Outpatient (CLI) | payer BC, OTHER ==
[~2020-03-30] VITALS: Ht 167.6 cm; Wt 76.9 kg
[~2020-03-30] MED LIST changes: +AMLODIPINE BESY10 MG PO; +ASA81BEC PO; +ESCITALOPRAM OX10 MG PO; +GABAPENTIN100 MG PO; +KLOR-CON 10 ER10 MEQ PO; +LASIX 40 MG TAB40 MG PO; +LORAZEPAM 0.50.5 MG PO; +MUPIROCIN1 GM TOP; +PROAIR DIGIHAL90 MCG INH; +RISPERIDONE 00.25 MG PO
[2020-03-30 10:09] VITALS: BP 84/55
--- NOTE | 2020-03-30 10:28 | NUR ---
Pain Clinic Assessment: 1. History of Osteoarthritis: SPINE B/L KNEES B/L HIPS History of Rheumatoid Arthritis: DENIES 2. Height: 5 ft. 6 in. 167.6 cm. Weight: 169.6 lb. oz. 76.930 kg. Patient's BMI: 27.4 3. Vital Signs: BP: 84/55 Pulse: 62 Resp: 16 Temp: 02 Sat: 97 ECG Mon: 4. Pain Intensity: 7 5. Fall Risk: Dizziness: N Needs help standing or walking: Y Fallen in the last 3 months: N Fall risk comments: USES CANE 6. Patient on Blood Thinner: None 7. History of Hypertension: Y 8. Opioid Therapy greater than 6 weeks: Y Opiate Contract Signed: 01/16/19 9. Risk Assessment Tool Provided: low-1 10. Functional Assessment Tool: 11. Recreational Drug Use: Never Drug Type: Tobacco Use: Former Smoker Tobacco Type: Amount or Packs/day: How Many Years: Alcohol Use: No Frequency: Quant:
--- NOTE | 2020-03-31 07:41 | HPC ---
[facility] [address] [place] [address] PAIN MANAGEMENT CONSULTATION Name: ROSE MARIE MERCER Room #: REG [facility].#: [id number] Admission: 03/30/20 Attend Phys: Vania Saleh Discharge: Date of : 39 Report #: [id number] THIS REPORT FOR: cc: Jeovany Baig MD, Eric K. MD Hocker, Amanda CNS ~ CC: Vania Gustafson MD DATE OF SERVICE: 03/30/2020 CHIEF COMPLAINT: Chronic back pain. HISTORY OF PRESENT ILLNESS: This is an 79-year-old female who presents to the pain clinic today for refill of her opioid medications. Upon taking her vital signs today, her blood pressure was quite low. The vice president of nursing and nurse did take her blood pressure several times, reading was 84/55. The patient was alert at that time answering questions with the son who is here present as well today. They reported that the patient has recently started a new medication. She thought it was for anxiety. They are unsure of the name. When questioned today regarding this medication, they reported to the nurse that they would call in with the medication. I did come to see the patient and started asking her about this new medication as well as how she was feeling today. We did discuss the risk of fall with a low blood pressure. I did ask the patient if she was dehydrated. She did not believe that she was. The son felt that she was not either. I did question her regarding a headache. The patient states that she was having a deep throbbing headache at that time. During our conversation, she coughed a couple of times then drooled. Then, she did slumped over in her chair to the right, drooled from the right side of her mouth with no obvious drooping of her facial appearance, patient slumped over in the chair. A RAT team was called and the patient was moved to her bed with the assistance of her son. We did place her on oxygen and EKG and her blood pressure remained low. The patient did awaken, was able to smile at me with no facial drooping noted. The RAT team did then take her to the Emergency Room, where she is being further evaluated. ALLERGIES: MANUEL INHIBITORS AND SULFA. CURRENT LIST OF MEDICATIONS: See list. PQRS: 1. She has osteoarthritis of her spine, knees and hips. Denies rheumatoid arthritis. 2. Height is 5 feet 6 inches, weight is 169, BMI is 27. Vital signs 84/55, [address] [address] PAIN MANAGEMENT CONSULTATION Name: ROSE MARIE MERCER Room #: REG [facility].#: [id number] Admission: 03/30/20 Attend Phys: Vania Saleh Discharge: Date of : 39 Report #: [id number] pulse is 62, respirations 16, oxygen sat is 97%. 3. Pain score is 7/10. 4. Denies dizziness. She does need assistance with a walker. Has not fallen in the last 3 months. 5. The patient is not on any blood thinners, does take medicine for hypertension. 6. Opioid therapy is greater than 6 weeks; therefore, an opioid signed contract is on the chart. Risk assessment is low. Functional assessment is 20/70. 7. Recreational drug use, she denies. She is a former smoker and does not drink alcohol. PHYSICAL EXAMINATION: GENERAL: This is a well-developed, well-nourished black female who appears her stated age. She is alert, though complaining of a headache, deep throbbing in nature. Son provides most of the history. She is smiling and does answer questions. HEENT: Normocephalic, atraumatic. Extraocular eye muscles were intact. She is wearing a mask. NEUROLOGIC: She had no facial drooping. Though did drool from the right side of her face. The patient able to smile with teeth clenched without noticeable differences. ASSESSMENT: 1. Hypotension, hx of hypertension 2. Possible transient ischemic attack versus cerebrovascular incident being evaluated. 3. Alzheimer's disease. 4. Osteoarthritis. 5. Chronic back pain. 6. Myofascial pain. 7. Complex medical management utilizing opioids. PLAN: 1. Again, the patient was transferred via the RAT team to the Emergency Room for possible evaluation for stroke like symptoms. The patient did collapse in the chair, prior to that had some drooling and coughing and then became unresponsive for a short amount of time before transfer to the bed and then transferred to the Emergency Room with the assistance of the RAT team and Dr. Price Gustafson. 2. I encouraged the son to call us to report how she is doing. We will send her hydrocodone to her pharmacy and they will followup with us. [facility] [address] [place] [address] PAIN MANAGEMENT CONSULTATION Name: ROSE MARIE MERCER Room #: REG GUILLERMO Villarreal#: [id number] Admission: 03/30/20 Attend Phys: Vania Saleh Discharge: Date of : 38 Report #: [id number] 3. The patient is seen with Dr. Gustafson who assisted in her care prior to the Emergency Room visit. <ELECTRONICALLY SIGNED> By: Vania Saleh 03/31/20 0741 1118 1249 Vania Saleh /nt
== END ==
LOC: PAIN 06:49
PROVIDERS: ATTEND Clinical Nurse Specialist Adult Health
DX: M54.9 Dorsalgia, unspecified (principal); G89.29 Other chronic pain; I10 Essential (primary) hypertension; M79.18 Myalgia, other site; G30.9 Alzheimer's disease, unspecified; F11.20 Opioid dependence, uncomplicated; Z88.8 Allergy status to other drugs, medicaments and biological substances; Z79.899 Other long term (current) drug therapy

== ENCOUNTER 2020-04-15 12:35 | Emergency (ER) | payer BC, OTHER ==
[~2020-04-15] VITALS: Ht 170.2 cm; Wt 76.2 kg
[~2020-04-15 12:35] MED LIST changes: +LORAZEPAM 0.50.5 MG PO; +PROAIR DIGIHAL90 MCG INH; +RISPERIDONE 00.25 MG PO
[2020-04-15] MEDS ORDERED: ASA81BEC PO (15:45)
[2020-04-15] MEDS ORDERED: AMLODIPINE BESY10 MG PO (15:45)
[2020-04-15] MEDS ORDERED: ESCITALOPRAM OX10 MG PO (15:47)
[2020-04-15] MEDS ORDERED: LASIX 40 MG TAB40 MG PO (15:47)
[2020-04-15] MEDS ORDERED: MUPIROCIN1 GM TOP (15:48)
[2020-04-15] MEDS ORDERED: GABAPENTIN100 MG PO (15:48)
[2020-04-15] MEDS ORDERED: KLOR-CON 10 ER10 MEQ PO (15:49)
[2020-04-15 16:34] LABS: ABSOLUTE NEUTROPHILS 3.4 thou/uL (1.4-8.2); BASOPHILS 0.3 % (0.0-2.0); EOSINOPHILS 5.2 % (0.0-3.0); HEMATOCRIT 37.5 % (37.0-47.0); HEMOGLOBIN 13.3 gm/dL (12.0-15.0); LYMPHOCYTES 20.3 % (24.0-44.0); MCH 31.5 pg (26.0-34.0); MCHC 35.4 g/dL (28.0-37.0); MONOCYTES 5.4 % (1.0-8.0); PLATELET COUNT 146 thou/uL (150-400); POLYS 68.8 % (36.0-66.0); RBC 4.22 mil/uL (4.20-5.00); RDW 14.1 % (10.5-14.5)
[2020-04-15 16:46] LABS: CREATININE 1.1 mg/dL (0.6-1.0); POTASSIUM 3.6 mmol/L (3.5-5.1)
[2020-04-15 16:51] LABS: ALBUMIN 3.8 g/dL (3.4-5.0); TOTAL BILIRUBIN 1.2 mg/dL (0.2-1.0); TOTAL PROTEIN 7.1 g/dL (6.4-8.2)
[2020-04-15 16:56] LABS: URINE BILIRUBIN NEGATIVE (Negative); URINE BLOOD NEGATIVE (Negative); URINE CLARITY CLEAR; URINE COLOR YELLOW; URINE GLUCOSE-RANDOM* NEGATIVE (Negative); URINE KETONES NEGATIVE (Negative); URINE LEUKOCYTES-REFLEX NEGATIVE (Negative); URINE NITRITE-REFLEX NEGATIVE (Negative); URINE PROTEIN (DIPSTICK) TRACE (Negative); URINE SPECIFIC GRAVITY 1.015 (1.005-1.035); URINE UROBILINOGEN 0.2 E.U./dl (0.2-1.0)
[2020-04-15 17:21] VITALS: BP 176/95
--- NOTE | 2020-04-16 11:37 | EKG ---
[facility] [place] [address] [place] [address] ELECTROCARDIOGRAM REPORT Name: ROSE MARIE MERCER [facility] [id number] Admission: 04/15/20 Attend Phys: Discharge: 04/15/20 Date of : 39 Report #: [id number] THIS REPORT FOR: cc: Jeovany Baig MD, Eric K. MD Couchonnal, Luis F. MD ~ THIS REPORT FOR: //name// [facility] ED Test Date: 2020-04-15 Test Time: 16:37:57 Pat Name: ROSE MARIE MERCER Department: Room: Gender: National Insurance Officer: PHIL : 1940 Requested By: Herrera Vazquez Order Number: [id number] MD: Santos Abbott Measurements Intervals [place] Rate: 61 P: 0 [place]: 150 QRS: -11 QRSD: 100 T: -10 QT: 457 QTc: 461 Interpretive Statements Sinus rhythm RSR' in V1 or V2, right VCD or RVH Left ventricular hypertrophy Compared to ECG 03/30/2020 11:57:20 Right ventricular hypertrophy now present RSR' in V1 or V2 now present Left ventricular hypertrophy now present Ventricular premature complex(es) no longer present Intraventricular conduction delay no longer present T-wave abnormality no longer present Electronically Signed On 04-16-2020 11:37:28 CDT by Santos Abbott [email or web address] <ELECTRONICALLY SIGNED> By: Santos Abbott MD 04/16/20 1137 1637 Santos Abbott MD /EPI
== END 2020-04-15 17:20 | disposition home or self-care (01) ==
LOC: ER 12:35
PROVIDERS: Physician Assistant
DX: S00.83XA Contusion of other part of head, initial encounter (principal); S60.211A Contusion of right wrist, initial encounter; M54.5 Low back pain; Z87.891 Personal history of nicotine dependence; Z88.2 Allergy status to sulfonamides; Z88.8 Allergy status to other drugs, medicaments and biological substances; Z79.899 Other long term (current) drug therapy; Z79.82 Long term (current) use of aspirin; Z96.642 Presence of left artificial hip joint; W18.30XA Fall on same level, unspecified, initial encounter; Y93.89 Activity, other specified; Y92.091 Bathroom in other non-institutional residence as the place of occurrence of the external cause; Y99.9 Unspecified external cause status

== ENCOUNTER 2020-11-04 19:46 | Emergency (ER) | payer BC, OTHER ==
[~2020-11-04] VITALS: Ht 172.7 cm; Wt 76.2 kg
[~2020-11-04 19:46] MED LIST changes: +AMLODIPINE BESY10 MG PO; +ASA81BEC PO; +ESCITALOPRAM OX10 MG PO; +GABAPENTIN100 MG PO; +KLOR-CON 10 ER10 MEQ PO; +LASIX 40 MG TAB40 MG PO; +MUPIROCIN1 GM TOP
[2020-11-04 21:17] VITALS: BP 146/77
== END 2020-11-04 21:31 | disposition home or self-care (01) ==
LOC: ER 19:46
DX: S70.01XA Contusion of right hip, initial encounter (principal); Z79.82 Long term (current) use of aspirin; Z79.899 Other long term (current) drug therapy; Z87.891 Personal history of nicotine dependence; Z88.2 Allergy status to sulfonamides; Z88.8 Allergy status to other drugs, medicaments and biological substances; W10.9XXA Fall (on) (from) unspecified stairs and steps, initial encounter; Y93.89 Activity, other specified; Y92.89 Other specified places as the place of occurrence of the external cause; Y99.8 Other external cause status

== ENCOUNTER 2020-11-25 13:13 | Inpatient (IN) | payer OTHER, BC ==
[~2020-11-25] VITALS: Ht 152.4 cm; Wt 61.2 kg
[2020-11-25 13:17] VITALS: BP 178/79
[2020-11-25 13:43] LABS: ABSOLUTE NEUTROPHILS 5.2 thou/uL (1.4-8.2); BASOPHILS 0.2 % (0.0-2.0); HEMATOCRIT 33.7 % (37.0-47.0); HEMOGLOBIN 11.9 gm/dL (12.0-15.0); LYMPHOCYTES 15.7 % (24.0-44.0); MCH 31.4 pg (26.0-34.0); MCHC 35.5 g/dL (28.0-37.0); MCV 88.5 fL (80.0-100.0); MONOCYTES 3.3 % (1.0-8.0); PLATELET COUNT 165 thou/uL (150-400); POLYS 74.8 % (36.0-66.0); RBC 3.81 mil/uL (4.20-5.00); RDW 14.3 % (10.5-14.5); WBC 6.9 thou/uL (4.0-11.0)
[2020-11-25 13:51] LABS: ANION GAP 12 mmol/L (7-16); BUN 10 mg/dL (7-18); CALCIUM 8.8 mg/dL (8.5-10.1); CHLORIDE 103 mmol/L (98-107); CO2 27 mmol/L (21-32); CREATININE 1.4 mg/dL (0.6-1.0); GLUCOSE 183 mg/dL (74-106); POTASSIUM 3.2 mmol/L (3.5-5.1); SODIUM 142 mmol/L (136-145)
[2020-11-25 13:55] LABS: INR 1.1; PROTIME 11.7 Seconds (9.3-11.4)
[2020-11-25 13:58] LABS: URINE BLOOD NEGATIVE (Negative); URINE CLARITY CLEAR; URINE COLOR YELLOW; URINE GLUCOSE-RANDOM* TRACE (Negative); URINE KETONES NEGATIVE (Negative); URINE LEUKOCYTES-REFLEX NEGATIVE (Negative); URINE NITRITE-REFLEX NEGATIVE (Negative); URINE PROTEIN (DIPSTICK) 3+ (Negative); URINE SPECIFIC GRAVITY >= 1.030 (1.005-1.035)
[2020-11-25 14:01] LABS: ICTOTEST (BILI CONFIRMATORY) Negative (Negative); URINE BILIRUBIN NEGATIVE (Negative)
[2020-11-25 14:02] LABS: ALBUMIN 3.7 g/dL (3.4-5.0); SGOT 21 U/L (15-37); SGPT 17 U/L (14-59); TOTAL BILIRUBIN 1.1 mg/dL (0.2-1.0); TOTAL PROTEIN 6.6 g/dL (6.4-8.2); TROPONIN-I <0.06 ng/mL (<0.06)
[2020-11-25 14:22] LABS: CRYSTALS None Seen /LPF (None Seen); HYALINE CASTS 0-3 Few /LPF (None Seen); MUCUS 4-6 Moderate strn/LPF (None Seen)
--- NOTE | 2020-11-25 14:24 | EKG ---
[facility] [address] [place] [address] ELECTROCARDIOGRAM REPORT Name: ROSE MARIE MERCER Room #: REG [facility]#: [id number] Admission: 11/25/20 Attend Phys: Discharge: Date of : 38 Report #: [id number] [facility] Test Date: 2020-11-25 Test Time: 13:22:01 Pat Name: ROSE MARIE MERCER Department: Room: Gender: F Lang Path Therapist: TEE : 1940 Requested By: Liat Manzano Order Number: [id number] MD: Nima Arriaga Measurements Intervals [place] Rate: 50 P: 11 ME: 174 QRS: -12 QRSD: 105 T: -23 QT: 476 QTc: 435 Interpretive Statements Sinus rhythm RSR' in V1 or V2, right VCD or RVH Left ventricular hypertrophy Compared to ECG 04/15/2020 16:37:57 No significant changes Electronically Signed On 11-25-2020 14:23:46 CDT by Nima Arriaga [email or web address] <ELECTRONICALLY SIGNED> By: Nima Arriaga MD, [facility] 11/25/20 1423 1322 1322 Nima Arriaga MD, FACC /EPI
[2020-11-25 14:25] LABS: SQUAMOUS 0-3 Few /LPF (0-3)
[2020-11-25 14:26] LABS: BACTERIA-REFLEX 1-9 Few /HPF (None Seen)
[2020-11-25 14:27] LABS: URINE RBC None Seen /HPF (0-2); URINE WBC-REFLEX 0-5 Rare /HPF (0-5)
[2020-11-25 18:02] LABS: CHOLESTEROL 200 mg/dL (<200); HDL CHOLESTEROL 56 mg/dL (>40); LDL CHOLESTEROL 125 mg/dL (<100); TC:HDL 3.6 Ratio (Not establshd); TRIGLYCERIDE 98 mg/dL (<150); VLDL 20 mg/dL (<40)
[2020-11-25 18:36] VITALS: BP 182/75
[2020-11-25 19:27] VITALS: BP 153/91
[2020-11-25 19:37] VITALS: BP 153/91
--- NOTE | 2020-11-26 00:51 | NUR ---
PT ADMITTED FROM ER FROM [facility] DUE TO VOMITING AND CONFUSION AT [facility]. ADMITTED TO 353 AT CHANGE OF SHIFT AROUND 1900. ALERT AND ORIENTED X1. POOR HISTORIAN. REORIENTED PT TO DATE, MTH, YEAR, PLACE, SITUATION. FOLLOWS COMMANADS. PERPVASILIY. FERMÍN . PT IS PLEASANT AND COOPERATIVE. VSS SB-SR ON MONITOR. INC OF URINE ON FLOOR. BED ALARM IS ON. BSC CONMODE PROVIDED. VOIDING CLEAR YELLOW URINE. IV FLUIDS INFUSING FROM ER. ABX STARTED ORDERED. ID CONSULTED. SPOKE WITH DR ESTES. HE WILL SEE PT IN THE AM. PT DENIED ANY S/S OF COVID. HER COVID CAME BACK POSITIVE. EXPLAINED ISOLATION TO PT. EXPLAINED FALL PRECAUTIONS TO PT. SHE STATED SHE FELL AT HOME WHILE DOING HOUSEWORK 2 1/2 WEEKS AGO. BED ALARM IS ON . NO SKIN BREAKDOWN NOTED BUT AREA ON LOWER BACK NOTED WHICH APPEARS DARK. POSSIBLY A BRUISE OR OLD SCAR FROM HER BACK SURGERY IN THE PAST.
[2020-11-26 03:27] LABS: HEMATOCRIT 31.3 % (37.0-47.0); HEMOGLOBIN 11.1 gm/dL (12.0-15.0); MCH 31.3 pg (26.0-34.0); MCHC 35.4 g/dL (28.0-37.0); MCV 88.5 fL (80.0-100.0); RBC 3.53 mil/uL (4.20-5.00); RDW 14.1 % (10.5-14.5); WBC 7.3 thou/uL (4.0-11.0)
[2020-11-26 03:29] LABS: CALCIUM 8.9 mg/dL (8.5-10.1); CREATININE 1.2 mg/dL (0.6-1.0); POTASSIUM 3.7 mmol/L (3.5-5.1)
[2020-11-26 04:17] VITALS: BP 123/73
--- NOTE | 2020-11-26 05:49 | NUR ---
PT FORGETFUL AND MILDLY CONFUSED TO PLACE DATE TIME BUT KNOWS SHES IN THE HOSPITAL. REINFORCED FALL PRECAUTIONS. VSS. AFEBRILE THIS AM. UNLABORD ON RA.
[2020-11-26 07:52] VITALS: BP 177/105
[2020-11-26 07:57] VITALS: BP 172/100
[2020-11-26 07:58] VITALS: BP 114/81
[2020-11-26 15:34] VITALS: BP 168/71
[2020-11-26 19:27] VITALS: BP 177/66
[2020-11-27] VITALS (8 sets, daily range): BP systolic 157–200; BP diastolic 71–97
--- NOTE | 2020-11-27 04:35 | NUR ---
Patient making slow progress towards outcome goals. Vital signs and rhythm stable. High fall risks, fall precautions in place. Uses call light appropriately for needs.
--- NOTE | 2020-11-27 05:15 | HC ---
[facility] [place] [address] CONSULTATION Name: ROSE MARIE MERCER Room #: 353-P ADM IN M.R.#: [id number] Admission: 11/25/20 Attend Phys: Marcela Espana MD Discharge: Date of : 38 Report #: [id number] THIS REPORT FOR: cc: Jeovany Baig MD, Eric K. MD Barry, Joseph W. MD ~ DATE OF SERVICE: 11/26/2020 INFECTIOUS DISEASE CONSULTATION ATTENDING PHYSICIAN: Dr. Espana. REASON FOR EVALUATION: COVID positive testing. HISTORY OF PRESENT ILLNESS: Chart reviewed, patient examined. This is an 80-year-old with some history of dementia, who sustained a fall within the last couple of weeks; however, she had a near syncopal episode. She describes generalized weakness, altered mental status. No evidence of seizure activity. As a result, she was brought to the Emergency Room. Evaluation is in progress. Did check COVID-19 PCR, which was positive. She denies any pulmonary-related complaints. No cough, no shortness of breath. Chest x-ray showed no evidence of infiltrate. Procalcitonin was less than 0.05. Lactic acid 1.0. ProBNP of 81. Urinalysis, 0-5 white cells. She is still mildly encephalopathic, does not remember much about the event. She is empirically started on azithromycin. ALLERGIES: MANUEL INHIBITORS and SULFA, latter which caused Teixeira-Zaheer syndrome. CURRENT MEDICATIONS: Include cholecalciferol, zinc, ascorbic acid, aspirin, risperidone, ezetimibe, donepezil, atorvastatin, levothyroxine, azithromycin, amitriptyline. PAST MEDICAL HISTORY: As noted above, total knee arthroplasties bilaterally, total hip arthroplasty on the left, previous laminectomy, right nephrectomy for renal cancer a number of years ago. SOCIAL HISTORY: Former smoker, occasional ethanol. No illicit drug use. FAMILY HISTORY: Noncontributory. REVIEW OF SYSTEMS: Somewhat limited due to her recall, currently denies dyspnea. No GI-related complaints. PHYSICAL EXAMINATION: GENERAL: Appears somewhat chronically ill. She is not overtly toxic, [facility] [address] [place] [address] CONSULTATION Name: ROSE MARIE MERCER Room #: 353-P [facility] IN ..#: [id number] Admission: 11/25/20 Attend Phys: Marcela Espana MD Discharge: Date of : 38 Report #: [id number] encephalopathic, undernourished. VITAL SIGNS: Temperature 98, pulse 76, respirations 16, blood pressure 114/81. SKIN: Warm, dry, no rashes. HEENT: Otherwise unremarkable. Normocephalic. Extraocular muscles intact. NECK: Supple. LUNGS: Somewhat diminished, overall clear. There are some crackles at the bases. HEART: Regular. I do not appreciate murmur. ABDOMEN: Soft, nontender, nondistended. EXTREMITIES: No cyanosis. GENITOURINARY AND RECTAL: Deferred. LABORATORY DATA: Blood cultures sterile thus far. Electrolytes: Sodium 145, potassium 3.7, chloride 109, bicarbonate is 24, anion gap of 12, BUN and creatinine 13 and 1.2. CBC: White count of 7.3, H and H 11.1 and 31.3, platelets of 168. Hemoglobin A1c of 5.0. Procalcitonin less than 0.05. TSH elevated at 14.492. Chest x-ray, no acute process. Urinalysis unremarkable. CT head normal without contrast. Lactic acid 1.0. Liver function tests were otherwise unremarkable with the exception of borderline elevated total bilirubin of 1.1, albumin 3.7, total protein 6.6. ASSESSMENT: COVID-19 infection without significant clinical manifestations at this point. She has been started on some vitamins. It is reasonable to start some ivermectin, continue on the azithromycin for now. It is not clear this is anything related to her near syncopal episode or seemingly this is a pattern happened multiple times. Did note that she was hypothyroid, certainly replacing that may help. Continue to monitor expectantly. We will add incentive spirometry. <ELECTRONICALLY SIGNED> By: Kevin Cloud MD 11/27/20 0515 [id number] [id number] Kevin Cloud MD /nt
--- NOTE | 2020-11-27 11:23 | EKG ---
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1940 Requested By: Marcela Espana Order Number: [id number] MD: Nima Arriaga Measurements Intervals [place] Rate: 50 P: 11 [place]: 174 QRS: -12 QRSD: 105 T: -23 QT: 476 QTc: 435 Interpretive Statements Sinus rhythm RSR' in V1 or V2, right VCD or RVH Left ventricular hypertrophy Compared to ECG 04/15/2020 16:37:57 No significant changes Electronically Signed On 11-27-2020 11:23:08 CDT by Nima Arriaga [email or web address] <ELECTRONICALLY SIGNED> By: Nima Arriaga MD, [facility] 11/27/20 1123 1322 1322 Nima Arriaga MD, [facility] /EPI
[2020-11-28] VITALS (10 sets, daily range): BP systolic 157–206; BP diastolic 81–92
--- NOTE | 2020-11-28 06:26 | NUR ---
Patient making slow progress towards outcome goals. Confused and anxious at begenning of shift, required assistance from family to calm patient down by phone. High fall risks, fall precautions in place. Rhythm stable. Blood pressure slowly improving. Oxygenation optimal on room air.
[2020-11-28] MEDS ORDERED: METOPROLOL SUCC25 M1 PO (08:51)
[2020-11-28] MEDS ORDERED: HYDRALAZINE 2525 MG PO (08:51)
[2020-11-28] MEDS ORDERED: MAGNESIUM400 MG PO (08:52)
[2020-11-28] MEDS ORDERED: SYNTHROID125 MC1 PO (08:55)
--- NOTE | 2020-11-28 10:06 | NUR ---
PAGED CARDIOLOGY RE: POSITIVE ORTHOSTATIC BP
--- NOTE | 2020-11-28 13:15 | NUR ---
INITIAL ASSESSMENT/DISCHARGE NOTE: Received consult for discharge planning. KACIE reviewed chart and spoke with nursing and attending physician. Pt was admitted from home due to nausea/vomiting. Pt placed in Enhanced Isolation due to positive COVID test. Pt is afebrile and not requiring O2. Pt has started Ivermectin. Pt is medically stable to discharge home today. KACIE spoke with pt's spouse, Nile, via phone. Introduced role of SW. Pt is normally alert/orientated. Pt and spouse live in their home. Per spouse, there is 1 step to enter the home from the garage and not steps inside. Pt has a cane to assist with ambulation. Pt's PCP is Dr. Jeovany Baig. SW offered to arrange HH services. Pt's spouse declines and states their dtr, who is an RN, is coming into town at the end of the week and will be staying for several weeks. Pt's spouse states they have a blood pressure monitor at home. SW encouraged pt's spouse to contact Dr. Baig's office if they feel pt would benefit from HH after discharge. Pt's spouse verbalized understanding and states he will be providing transportation home when pt is ready. KACIE updated nursing. No SW needs identified at this time, but is available to assist should needs arise.
--- NOTE | 2020-11-28 16:12 | NUR ---
SPOKE TO PT CONCEPCION AT 1430. INFORMED PT WOULD BE READY TO DISCHARGE TO HOME. REVIEWED HOSPITAL PPWK INCLUDING DC INSTRUCTIONS, MEDICATIONS. PT PROVIDED VERBAL UNDERSTANDING. INFORMED PT WILL NEED TO BE IN ISOLATION PRECAUTIONS DUE TO COVID. PT VERBALIZED UNDERSTANDING. PT DID NOT RECEIVE STEROIDS DURING HOSPITAL STAY.
--- NOTE | 2020-11-29 08:04 | NUR ---
Note Given: Y Facility List Provided:Y Facility Vaishali: None chosen at this time Opal Cuellar NP discussed BPCI with this pt 11/28/20
== END 2020-11-28 15:55 | disposition home or self-care (01) | DRG 73 ==
LOC: ER 13:13 → 3W 16:19 → EROBS 16:19 → 3W 18:52
PROVIDERS: Emergency Medicine; ADMIT Internal Medicine; ATTEND Internal Medicine
DX: G90.8 Other disorders of autonomic nervous system (principal); U07.1 COVID-19; E03.9 Hypothyroidism, unspecified; N18.9 Chronic kidney disease, unspecified; I12.9 Hypertensive chronic kidney disease with stage 1 through stage 4 chronic kidney disease, or unspecified chronic kidney disease; E78.5 Hyperlipidemia, unspecified; I73.9 Peripheral vascular disease, unspecified; I95.2 Hypotension due to drugs; I27.20 Pulmonary hypertension, unspecified; D64.9 Anemia, unspecified; R73.9 Hyperglycemia, unspecified; E86.0 Dehydration; E87.6 Hypokalemia; G30.9 Alzheimer's disease, unspecified; F02.80 Dementia in other diseases classified elsewhere, unspecified severity, without behavioral disturbance, psychotic disturbance, mood disturbance, and anxiety; Z96.653 Presence of artificial knee joint, bilateral; Z85.528 Personal history of other malignant neoplasm of kidney; Z79.82 Long term (current) use of aspirin; Z79.899 Other long term (current) drug therapy; Z88.2 Allergy status to sulfonamides; Z88.8 Allergy status to other drugs, medicaments and biological substances; Z87.891 Personal history of nicotine dependence
CPT/HCPCS: 10879

== ENCOUNTER 2021-02-08 20:14 | Emergency (ER) | payer BC, OTHER ==
[~2021-02-08] VITALS: Ht 167.6 cm; Wt 72.6 kg
[~2021-02-08 20:14] MED LIST changes: +HYDRALAZINE 2525 MG PO; +MAGNESIUM400 MG PO; +METOPROLOL SUCC25 M1 PO
[2021-02-08 21:01] LABS: ABSOLUTE NEUTROPHILS 4.1 thou/uL (1.4-8.2); BASOPHILS 0.3 % (0.0-2.0); HEMOGLOBIN 12.6 gm/dL (12.0-15.0); LYMPHOCYTES 21.2 % (24.0-44.0); MCH 30.8 pg (26.0-34.0); MCHC 35.9 g/dL (28.0-37.0); MCV 85.8 fL (80.0-100.0); MONOCYTES 6.9 % (1.0-8.0); PLATELET COUNT 160 thou/uL (150-400); POLYS 66.6 % (36.0-66.0); RBC 4.08 mil/uL (4.20-5.00); RDW 13.7 % (10.5-14.5); WBC 6.2 thou/uL (4.0-11.0)
[2021-02-08 21:07] LABS: ANION GAP 11 mmol/L (7-16); BUN 9 mg/dL (7-18); CALCIUM 8.8 mg/dL (8.5-10.1); CHLORIDE 105 mmol/L (98-107); CO2 27 mmol/L (21-32); CREATININE 1.1 mg/dL (0.6-1.0); GLUCOSE 110 mg/dL (74-106); POTASSIUM 3.4 mmol/L (3.5-5.1); SODIUM 143 mmol/L (136-145)
[2021-02-08 21:16] LABS: TROPONIN-I <0.06 ng/mL (<0.06)
[2021-02-08 22:40] VITALS: BP 151/87
--- NOTE | 2021-02-09 07:15 | EKG ---
[address] [address] ELECTROCARDIOGRAM REPORT Name: ROSE MARIE MERCER Room #: [facility]P [facility]#: [id number] Admission: 02/08/21 Attend Phys: Discharge: 02/08/21 Date of : 38 Report #: [id number] [facility] ED Test Date: 2021-02-08 Test Time: 21:26:17 Pat Name: ROSE MARIE MERCER Department: Room: Gender: F Manager Cash: HERIBERTO : 1940 Requested By: José Luis Waller Order Number: [id number] MD: Nima Arriaga Measurements Intervals [place] Rate: 71 P: 8 [place]: 152 QRS: -18 QRSD: 95 T: -9 QT: 412 QTc: 448 Interpretive Statements Sinus rhythm Atrial premature complex Left ventricular hypertrophy Borderline T abnormalities, inferior leads Compared to ECG 11/25/2020 13:22:01 Atrial premature complex(es) now present T-wave abnormality now present Right ventricular hypertrophy no longer present Electronically Signed On 02-09-2021 7:15:45 CDT by Nima Arriaga [email or web address] <ELECTRONICALLY SIGNED> By: Nima Arriaga MD, FAC 02/09/21 0715 25 25 Nima Arriaga MD, [facility] /EPI
== END 2021-02-08 22:40 | disposition home or self-care (01) ==
LOC: ER 20:14
PROVIDERS: Nurse Practitioner
DX: R07.89 Other chest pain (principal); I10 Essential (primary) hypertension; Z87.891 Personal history of nicotine dependence; Z88.2 Allergy status to sulfonamides; Z88.8 Allergy status to other drugs, medicaments and biological substances; Z79.899 Other long term (current) drug therapy; Z79.82 Long term (current) use of aspirin